=== PATIENT | female | born 1985 | race Caucasian/White ===

== ENCOUNTER → 2016-09-05 | Outpatient (CLI) | payer SELFPAY ==
--- NOTE | 2016-09-05 12:01 | MM ---
Reason for exam: clinical finding. Baseline mammogram. Indicated problem(s): lump or thickening in the right breast. Physical Findings: Nurse Summary: 0.5cm nodule in the right breast at 4 o'clock (nurse mm). MG Diagnostic Mammo w CAD ARIANNE Bilateral CC, MLO, and XCCL view(s) were taken. There are scattered fibroglandular densities. Finding: There are few typically benign round calcifications in the right breast. There is no discrete abnormality. These results were verbally communicated with the patient and result sheet given to the patient on 09/05/16. ASSESSMENT: Incomplete: need additional imaging evaluation, BI-RAD 0 RECOMMENDATION: Ultrasound of the right breast. (palpable abnormality)
--- NOTE | 2016-09-05 12:03 | USB ---
Reason for exam: additional evaluation requested from abnormal screening. US Breast Limited RT Right breast ultrasound demonstrates no cystic or solid lesion seen. These results were verbally communicated with the patient and result sheet given to the patient on 09/05/16. ASSESSMENT: Negative, BI-RAD 1 RECOMMENDATION: Routine screening mammogram of both breasts at age 40. Manage patient on a clinical basis.
== END | disposition home or self-care (01) ==
LOC: RADMAMWWP 09:56
PROVIDERS: ATTEND Internal Medicine
DX: N63 Unspecified lump in breast (principal); R92.8 Other abnormal and inconclusive findings on diagnostic imaging of breast
CPT/HCPCS: 81025; 76642; G0204

== ENCOUNTER 2017-06-29 13:55 | Emergency (ER) | payer SELFPAY ==
[2017-06-29 14:04] VITALS: BP 163/91; PULSE 86; RESP 16; TEMP 98.7
--- NOTE | 2017-06-29 15:01 | XR ---
EXAMINATION TYPE: XR chest 2V DATE OF EXAM: 06/29/2017 COMPARISON: NONE HISTORY: Chest pain TECHNIQUE: Frontal and lateral views of the chest are obtained. FINDINGS: There is no focal air space opacity. No evidence for pneumothorax. No pleural effusion. The cardiac silhouette size is within normal limits. The osseous structures are grossly intact. IMPRESSION: 1. No acute cardiopulmonary process.
--- NOTE | 2017-06-29 15:41 | ED ---
General Adult HPI - General Chief complaint: Upper Respiratory Infection Stated complaint: COUGHING Time Seen by Provider: 06/29/17 14:44 Source: patient, RN notes reviewed Mode of arrival: ambulatory Limitations: no limitations - History of Present Illness Initial comments: 32-year-old female presents emergency Department chief complaint of cough and congestion. She states she's had this for the last few days. She states she feels very congested in the chest. She states she is not coughing anything up. She does admit to a runny nose. No high fevers. Her brother has bronchitis. There is been no nausea or vomiting. She does smoke on occasion. She was concerned because she just does not seem to be getting better so she thought that she should be seen. no nausea, vomiting, abdominal pain, SOB, chest pain. - Related Data Home Medications Medication Instructions Recorded Confirmed Ibuprofen [Advil] 200 - 400 mg PO Q6H PRN 06/29/17 06/29/17 guaiFENesin-DM 600/30MG [Mucinex 1 tab PO BID PRN 06/29/17 06/29/17 Dm] Previous Rx's Medication Instructions Recorded predniSONE 50 mg PO DAILY #5 tab 06/29/17 Allergies Allergy/AdvReac Type Severity Reaction Status Date / Time No Known Allergies Allergy Verified 06/29/17 14:56 Review of Systems ROS Statement: Those systems with pertinent positive or pertinent negative responses have been documented in the HPI. ROS Other: All systems not noted in ROS Statement are negative. Past Medical History Past Medical History: No Reported History History of Any Multi-Drug Resistant Organisms: None Reported Past Surgical History: Adenoidectomy, Tonsillectomy Past Anesthesia/Blood Transfusion Reactions: No Reported Reaction Past Psychological History: No Psychological Hx Reported Smoking Status: Current some day smoker Past Alcohol Use History: None Reported Past Drug Use History: None Reported General Exam - General Exam Comments Initial Comments: General exam: Alert, active, comfortable in no apparent distress Head: Normocephalic Eyes: Normal reaction of pupils, equal size, normal range of extraocular motion Ears: normal external ear canals, pink tympanic membranes with normal cone of light Nose: clear with pink turbinates Throat: no erythema or exudates with normal sized tonsils Neck: no masses, no nuchal rigidity Chest: no chest wall deformity Lungs: equal air entry with no crackles or wheeze CVS: S1 and S2 normal with no audible mumurs, regular rhythm Abdomen: no hepatosplenomegaly, normal bowel sounds, no guarding or rigidity Spine: no scoliosis or deformity Skin: no rashes Neurological: No focal deficits, tone is normal in all 4 extremities Limitations: no limitations Course Vital Signs 06/29/17 14:01 Temperature 98.7 F Pulse Rate 86 Respiratory 16 Rate Blood Pressure 163/91 O2 Sat by Pulse 98 Oximetry Medical Decision Making - Medical Decision Making 32 yo female presents for upper respiratory infection symptoms. CHest xray and swabs are negative. we discussed most likely viral cause. We discussed return parameters and follow up. Patient in agreement with plan and all questions have been answered. Patient will be discharged at this time. return parameters were discussed. - Lab Data Lab Results 06/29/17 Range/Units 14:21 Influenza Type A RNA Not Detected (Not Detectd) Influenza Type B (PCR) Not Detected (Not Detectd) Disposition Clinical Impression: Upper respiratory infection Disposition: HOME SELF-CARE Condition: Stable Instructions: Upper Respiratory Infection (ED) Additional Instructions: please use medications as prescribed. follow up in 2-3days. Please return for worsening or changing symptoms. Prescriptions: predniSONE 50 mg PO DAILY #5 tab Referrals: Katlyn Chaidez MD [Primary Care Provider] - 1-2 days Time of Disposition: 15:41
== END 2017-06-29 15:55 | disposition home or self-care (01) ==
LOC: EC 13:55
DX: J06.9 Acute upper respiratory infection, unspecified (principal); F17.200 Nicotine dependence, unspecified, uncomplicated
CPT/HCPCS: 71046; 87502; 99283

== ENCOUNTER 2017-10-01 13:04 | Emergency (ER) | payer OTHER ==
[2017-10-01 13:35] VITALS: BP 143/95; PULSE 84; RESP 18; TEMP 98.6
--- NOTE | 2017-10-01 14:01 | ED ---
General Adult HPI - General Chief complaint: Skin/Abscess/Foreign Body Stated complaint: arm swelling/pain Time Seen by Provider: 10/01/17 13:43 Source: patient, RN notes reviewed Mode of arrival: ambulatory Limitations: no limitations - History of Present Illness Initial comments: Patient 32-year-old female presenting to the emergency room today with a chief complaint of some swelling some pain to the left upper arm. Patient does admit that began to bother light last night. She states she does feel that there is some swelling to the medial aspect distal humerus. Patient states worse with certain movements. She is unsure if she injured the area. Patient denies any other complaints or symptoms. Patient denies any recent fever, chills, shortness of breath, chest pain, back pain, abdominal pain, nausea or vomiting, numbness or tingling, headaches or visual changes, or any other complaints. - Related Data Home Medications Medication Instructions Recorded Confirmed Ibuprofen [Advil] 200 - 400 mg PO Q6H PRN 06/29/17 06/29/17 guaiFENesin-DM 600/30MG [Mucinex 1 tab PO BID PRN 06/29/17 06/29/17 Dm] Previous Rx's Medication Instructions Recorded predniSONE 50 mg PO DAILY #5 tab 06/29/17 Allergies Allergy/AdvReac Type Severity Reaction Status Date / Time No Known Allergies Allergy Verified 10/01/17 13:34 Review of Systems ROS Statement: Those systems with pertinent positive or pertinent negative responses have been documented in the HPI. ROS Other: All systems not noted in ROS Statement are negative. Past Medical History Past Medical History: Hypertension History of Any Multi-Drug Resistant Organisms: None Reported Past Surgical History: Adenoidectomy, Tonsillectomy Additional Past Surgical History / Comment(s): d & c x2 Past Anesthesia/Blood Transfusion Reactions: No Reported Reaction Past Psychological History: No Psychological Hx Reported Smoking Status: Current every day smoker Past Alcohol Use History: None Reported Past Drug Use History: None Reported General Exam - General Exam Comments Initial Comments: General: The patient is awake and alert, in no distress, and does not appear acutely ill. Neck: The neck is supple, there is no tenderness or JVD. Cardiovascular: There is a regular rate and rhythm. No murmur, rub or gallop is appreciated. Respiratory: Lungs are clear to auscultation, respirations are non-labored, breath sounds are equal. No wheezes, stridor, rales, or rhonchi. Musculoskeletal/skin: Patient has normal appearance for left upper extremity. There is no obvious swelling, redness, deformity. Patient does have some tenderness to the medial aspect of the distal humerus. Full range of motion. Sensation intact. Pulses equal bilateral 2+. Strength 5/5. Neurological: A&O x 3. CN II-XII intact, There are no obvious motor or sensory deficits. Coordination appears grossly intact. Speech is normal. Limitations: no limitations Course Vital Signs 10/01/17 13:32 Temperature 98.6 F Pulse Rate 84 Respiratory 18 Rate Blood Pressure 143/95 O2 Sat by Pulse 97 Oximetry Medical Decision Making - Medical Decision Making Patient's ultrasound negative for any evidence of DVT. Results were discussed with the patient. Patient advised to continue with anti-inflammatories. Advised watch for signs infection. Advised return if any symptoms increase or worsen. Disposition Clinical Impression: Arm pain Disposition: HOME SELF-CARE Condition: Good Instructions: Muscle Strain (ED) Additional Instructions: Please continue anti-inflammatories for pain. Please watch for signs of infection which may include increased pain times one, redness, fever or chills. Please return to emergency room if any symptoms increase or worsen or fail concerns for Referrals: Katlyn Chaidez MD [Primary Care Provider] - 1-2 days Time of Disposition: 15:05
--- NOTE | 2017-10-01 15:00 | US ---
EXAMINATION TYPE: US venous doppler duplex UE LT DATE OF EXAM: 10/01/2017 COMPARISON: NONE CLINICAL HISTORY: Pain. Pt states tingling left medial arm and fingers SIDE PERFORMED: Left Morbidly obese pt, difficult exam Grayscale, color doppler, spectral doppler imaging performed of the deep veins of the upper extremity . There is normal flow, compressibility and vascular waveforms. IMPRESSION: Left Arm: Negative for DVT
== END 2017-10-01 15:15 | disposition home or self-care (01) ==
LOC: EC 13:04
DX: M79.622 Pain in left upper arm (principal); M79.89 Other specified soft tissue disorders; F17.200 Nicotine dependence, unspecified, uncomplicated
CPT/HCPCS: 99283

== ENCOUNTER → 2020-01-26 | Outpatient (CLI) | payer BC ==
[2020-01-26 13:40] LABS: HCT 40.2 % (34.0-46.0); HGB 12.6 gm/dL (11.4-16.0); MCH 25.9 pg (25.0-35.0); MCHC 31.3 g/dL (31.0-37.0); MCV 82.8 fL (80.0-100.0); Mean Platelet Volume 6.8; Platelet Count 241 k/uL (150-450); RBC 4.85 m/uL (3.80-5.40); RDW 14.4 % (11.5-15.5); WBC 8.5 k/uL (3.8-10.6)
[2020-01-26 20:34] LABS: Progesterone 0.3 ng/mL
[2020-01-27 00:25] LABS: Prolactin 17.7 ng/mL (2.8-29.2)
[2020-01-27 00:26] LABS: Estradiol 271.4 pg/mL; Follicle Stimulating Hormone 1.3 mIU/mL
[2020-01-27 00:29] LABS: HCG,Quantitative Serum <2.0 mIU/mL
== END | disposition home or self-care (01) ==
LOC: LABWHC1 12:37
PROVIDERS: ATTEND Obstetrics & Gynecology
DX: Z13.29 Encounter for screening for other suspected endocrine disorder (principal); N93.8 Other specified abnormal uterine and vaginal bleeding
CPT/HCPCS: 36415; 82627; 82670; 83001; 83002; 84144; 84146; 84403; 84439; 84443; 84479; 84702; 85027

== ENCOUNTER → 2020-02-10 | Outpatient (CLI) | payer BC ==
--- NOTE | 2020-02-11 06:38 | US ---
EXAMINATION TYPE: US pelvis complete transvag DATE OF EXAM: 02/10/2020 COMPARISON: Prior ultrasound September 15, 2014 CLINICAL HISTORY: N93.8 Other specified abnormal uterine and vaginal. heavy bleeding and clots, patie nt has had this happened before, PCOS, TECHNIQUE: TA and TV. Transabdominal sonographic images of the pelvis were acquired. Transvaginal sonographic images were medically necessary to better assess the following anatomy: uterus Date of LMP: 01/29/2020, lasted 2 weeks EXAM MEASUREMENTS: Uterus: 13.4 x 7.8 x 6.7 cm Endometrial Stripe: 1.9 cm Right Ovary: 3.8 x 2.9 x 3.6 cm Left Ovary: 3.3 x 2.9 x 2.6 cm *large habitus* 1. Uterus: Anteverted enlarged with appearance of fundal fibroid = 4.1 x 3.1 x 3.1cm 2. Endometrium: thickened 3. Right Ovary: wnl 4. Left Ovary: wnl 5. Bilateral Adnexa: wnl 6. Posterior cul-de-sac: wnl Prominent heterogeneous uterus redemonstrated. In the fundus there is poorly defined hyperechoic 3.5 cm lesion felt to reflect intramural fibroid not clearly seen on prior study. This is more hypoechoic on transvaginal investigation. Endometrial stripe is poorly defined but also suspected abnormally th ickened with measurements up to 22 mm on transvaginal investigation and 15 mm on transabdominal inves tigation. No free fluid in pelvic cul-de-sac. Few small nabothian cysts in the cervix. Both ovaries are identified and normal in size on transabdominal investigation, not identified and tr ansvaginal investigation. No suspicious adnexal masses noted. IMPRESSION: Heterogeneous prominent uterus with focal 4.1 cm fundal intramural fibroid. Poor visuali zation of endometrial stripe but it is felt abnormally thickened especially given patient's last know n menstrual period January 28 for proliferative phase of menstrual cycle. Consider further investigatio n with dilatation and curettage given patient's symptoms.
== END | disposition home or self-care (01) ==
LOC: RADUSWWP 14:38
PROVIDERS: ATTEND Obstetrics & Gynecology
DX: D25.1 Intramural leiomyoma of uterus (principal)
CPT/HCPCS: 76830; 76856

== ENCOUNTER → 2020-03-29 | Outpatient (CLI) | payer BC ==
[2020-03-29 10:36] LABS: Basophils % (A) 0 %; Eosinophils % (A) 0 %; HCT 38.6 % (34.0-46.0); HGB 12.3 gm/dL (11.4-16.0); Hypochromasia Slight; Lymphocytes # (A) 1.8 k/uL (1.0-4.8); Lymphocytes % (A) 27 %; MCH 25.7 pg (25.0-35.0); MCHC 31.9 g/dL (31.0-37.0); MCV 80.4 fL (80.0-100.0); Mean Platelet Volume 7.3; Monocytes # (A) 0.3 k/uL (0-1.0); Monocytes % (A) 5 %; Neutrophils # (A) 4.6 k/uL (1.3-7.7); Neutrophils % (A) 67 %; Platelet Count 238 k/uL (150-450); RDW 14.4 % (11.5-15.5); WBC 6.9 k/uL (3.8-10.6)
== END | disposition home or self-care (01) ==
LOC: LABPAT 08:37
PROVIDERS: ATTEND Obstetrics & Gynecology
DX: Z01.818 Encounter for other preprocedural examination (principal)
CPT/HCPCS: 36415; 85025

== ENCOUNTER → 2020-04-01 | Outpatient (CLI) | payer BC ==
--- NOTE | 2020-04-01 11:00 | ECHOF ---
Referral Reason:R00.2 palpitations MEASUREMENTS -------- HEIGHT: 165.1 cm WEIGHT: 149.7 kg BP: RVIDd: 3.6 cm (< 3.3) IVSd: 1.5 cm (0.6 - 1.1) LVIDd: 4.6 cm (3.9 - 5.3) LVPWd: 1.6 cm (0.6 - 1.1) IVSs: 2.0 cm LVIDs: 3.3 cm LVPWs: 1.7 cm LAESV Index (A-L): 28.13 ml/m Ao Diam: 3.5 cm (2.0 - 3.7) AV Cusp: 2.2 cm (1.5 - 2.6) MV EXCURSION: 11.333 mm (> 18.000) MV EF SLOPE: 73 mm/s (70 - 150) EPSS: 0.8 cm MV E Beltran: 0.96 m/s MV DecT: 205 ms MV A Beltran: 0.84 m/s MV E/A Ratio: 1.14 RAP: 5.00 mmHg RVSP: 37.55 mmHg FINDINGS -------- Sinus rhythm with extra systolic beats. This was a technically difficult study with suboptimal apical views. The left ventricular size is normal. There is moderate concentric left ventricular hypertrophy. O verall left ventricular systolic function is low-normal with, an EF between 50 - 55 %. The diastoli c filling pattern is normal for the age of the patient 11.50. The right ventricle is mildly enlarged. Normal LA size by volume 22+/-6 ml/m2. The right atrium was not well visualized. 5.0mg of Lumason was utilized for enhancement of images Interatrial and interventricular septum intact. There is no evidence of aortic regurgitation. There is no evidence of aortic stenosis. There is trace to mild mitral regurgitation. Mild tricuspid regurgitation present. There is borderline pulmonary artery hypertension. The righ t ventricular systolic pressure, as measured by Doppler, is 37.55mmHg. There is no pulmonic regurgitation present. The aortic root size is normal. IVC Not well visulized. There is no pericardial effusion. CONCLUSIONS -------- 1. The left ventricular size is normal. 2. There is moderate concentric left ventricular hypertrophy. 3. Overall left ventricular systolic function is low-normal with, an EF between 50 - 55 %. 4. The diastolic filling pattern is normal for the age of the patient 11.50 5. The right ventricle is mildly enlarged. 6. There is trace to mild mitral regurgitation. 7. Mild tricuspid regurgitation present. 8. There is borderline pulmonary artery hypertension. 9. The right ventricular systolic pressure, as measured by Doppler, is 37.55mmHg. MOBILE APPLICATION DEVELOPER: Unique Fountain RDCS
== END | disposition home or self-care (01) ==
LOC: RADECHMAIN 08:26
PROVIDERS: ATTEND Nurse Practitioner Family
DX: I08.1 Rheumatic disorders of both mitral and tricuspid valves (principal); I27.21 Secondary pulmonary arterial hypertension
CPT/HCPCS: 93306; Q9950

== ENCOUNTER 2020-04-05 06:02 | Day surgery (SDC) | payer BC ==
[2020-04-01 13:19] VITALS: BMI 54.6
--- NOTE | 2020-04-02 15:52 | P.HPOB ---
History of Present Illness H&P Date: 04/02/20 Chief Complaint: Dysfunctional uterine bleeding Patient is a 35-year-old female who has heavy vaginal bleeding. An ultrasound reveals the lining of her uterus to 1.9 cm with a 4 cm fibroid fibroid. She does have a history of hyperplasia and therefore she is scheduled for a D&C with hysteroscopy. Once tissue samples return we'll plan for more thorough long-term management treatment options. On physical exam vital signs are stable and afebrile. This is a morbidly obese female whose HEENT is otherwise unremarkable. Heart is otherwise regular, lungs are otherwise clear abdomen soft and nontender and pelvic exam is unremarkable but limited due to body habitus. Assessment soft uterine bleeding/menorrhagia with history of hyperplasia Plan D&C with hysteroscopy Past Medical History Past Medical History: Diabetes Mellitus, Hyperlipidemia, Hypertension Additional Past Medical History / Comment(s): PCOS. difficult periods History of Any Multi-Drug Resistant Organisms: None Reported Past Surgical History: Adenoidectomy, Tonsillectomy Additional Past Surgical History / Comment(s): d & c x2 Past Anesthesia/Blood Transfusion Reactions: No Reported Reaction Smoking Status: Former smoker - Past Family History Mother Family Medical History: No Reported History Medications and Allergies Home Medications Medication Instructions Recorded Confirmed Type Atorvastatin [Lipitor] 10 mg PO HS 04/01/20 04/01/20 History Ergocalciferol [Vitamin D2] 50,000 unit PO FR 04/01/20 04/01/20 History Triamterene/Hydrochlorothiazid 2 tab PO DAILY 04/01/20 04/01/20 History [Triamterene-Hctz 37.5-25 mg Tb] Venlafaxine HCl [Effexor] 75 mg PO DAILY 04/01/20 04/01/20 History amLODIPine [Norvasc] 10 mg PO DAILY 04/01/20 04/01/20 History metFORMIN HCL 1,000 mg PO BID 04/01/20 04/01/20 History Allergies Allergy/AdvReac Type Severity Reaction Status Date / Time No Known Allergies Allergy Verified 04/01/20 13:09 Exam Osteopathic Statement: *. No significant issues noted on an osteopathic structural exam other than those noted in the History and Physical/Consult.
[~2020-04-05 06:02] MED LIST: DEXAMETHASONE SOD PHOSPHATE 10 MG/ML 1 ML VIAL IV ONE; HYDROmorphone 0.5 MG/0.5 ML SYRINGE IVP PRN; LACTATED RINGERS 1,000 ML IV SCH; ONDANSETRON 4 MG/2 ML VIAL IVP ONE; Pre Op ABX Message 1 EACH MISC MISCELLANE ONE; SCOPOLAMINE 1.5MG/72HR PATCH TRANSDERM ONE
[2020-04-05] MEDS ORDERED: LIDOCAINE 1% (10MG/ML) FOR IV START INTRADERMA ONE (06:50)
[2020-04-05 07:01] LABS: Glucose,Whole Blood 151 mg/dL (75-99)
[2020-04-05] MEDS ORDERED: SUCCINYLCHOLINE CHLORIDE VIAL 200 MG/10 ML VIAL IV ONE (07:31)
[2020-04-05] MEDS ORDERED: PROPOFOL 10 MG/ML 20 ML VIAL IV ONE (07:31)
[2020-04-05] MEDS ORDERED: fentaNYL (PF) 50 MCG/ML 2 ML AMP ONE (07:31)
[2020-04-05] MEDS ORDERED: KETOROLAC 15 MG/ML 1 ML VIAL ONE (07:31)
[2020-04-05] MEDS ORDERED: MIDAZOLAM 2 MG/2 ML VIAL ONE (07:31)
[2020-04-05] MEDS ORDERED: LIDOCAINE 1% INJ 10MG/ML (20 ML MDV) ONE (07:31)
--- NOTE | 2020-04-05 08:07 | P.OP ---
Date of Procedure: 04/05/20 Preoperative Diagnosis: Dysfunctional uterine bleeding Postoperative Diagnosis: Same Procedure(s) Performed: D&C with hysteroscopy Anesthesia: RADHA Surgeon: Bigg Geronimo Estimated Blood Loss (ml): 5 Pathology: other (Uterine curettings) Condition: stable Disposition: same day Operative Findings: Proliferative endometrium Description of Procedure: Patient was taken to the operating suite where general anesthetic was found be adequate. She was prepped and draped in normal sterile fashion and placed in dorsal lithotomy position. Initially a weighted speculum was inserted in vagina and anterior lip of the cervix identified and grasped with single-tooth tenaculum. Was then sounded to approximately 10 at 11 cm and dilated. Camera was then inserted proliferative endometrium. She was having some menses at this point some minimal visualization was actually able to be obtained. Once this was concluded. Camera was removed and sharp curettings of the endometrium were obtained. All tissues collected and placed on Telfa. It was then sent to [facility] for evaluation. All incidents were then removed. Sponge, lap, needle counts were all correct 2. Patient was then taken to the recovery room in stable and satisfactory condition. Plan - Discharge Summary Discharge Rx Participant: No New Discharge Prescriptions: New Ibuprofen [Motrin] 600 mg PO Q6HR PRN #30 tab PRN Reason: Pain No Action metFORMIN HCL 1,000 mg PO BID Venlafaxine HCl [Effexor] 75 mg PO DAILY Ergocalciferol [Vitamin D2] 50,000 unit PO FR Atorvastatin [Lipitor] 10 mg PO HS amLODIPine [Norvasc] 10 mg PO DAILY Triamterene/Hydrochlorothiazid [Triamterene-Hctz 37.5-25 mg Tb] 2 tab PO DAILY Discharge Medication List Atorvastatin [Lipitor] 10 mg PO HS 04/01/20 [History] Ergocalciferol [Vitamin D2] 50,000 unit PO FR 04/01/20 [History] Triamterene/Hydrochlorothiazid [Triamterene-Hctz 37.5-25 mg Tb] 2 tab PO DAILY 04/01/20 [History] Venlafaxine HCl [Effexor] 75 mg PO DAILY 04/01/20 [History] amLODIPine [Norvasc] 10 mg PO DAILY 04/01/20 [History] metFORMIN HCL 1,000 mg PO BID 04/01/20 [History] Ibuprofen [Motrin] 600 mg PO Q6HR PRN #30 tab 04/05/20 [Rx] Follow up Appointment(s)/Referral(s): Bigg Geronimo DO [Doctor of Osteopathic Medicine] - 1 Week Activity/Diet/Wound Care/Special Instructions: No heavy lifting, limit stairs and driving, and pelvic rest today. If any high temperatures, heavy bleeding, or severe pain call my office Discharge Disposition: HOME SELF-CARE
[2020-04-05 08:13] VITALS: TEMP 97.9
[2020-04-05 08:19] LABS: Glucose,Whole Blood 156 mg/dL (75-99)
[2020-04-05 08:48] VITALS: RESP 16
[2020-04-05 08:55] VITALS: BP 143/78; PULSE 77
== END 2020-04-05 09:27 | disposition home or self-care (01) ==
LOC: OR 06:02
PROVIDERS: ATTEND Obstetrics & Gynecology
DX: N85.00 Endometrial hyperplasia, unspecified (principal); I10 Essential (primary) hypertension; E78.5 Hyperlipidemia, unspecified; E11.9 Type 2 diabetes mellitus without complications; E28.2 Polycystic ovarian syndrome; E66.01 Morbid (severe) obesity due to excess calories; Z88.8 Allergy status to other drugs, medicaments and biological substances; Z79.899 Other long term (current) drug therapy; Z79.84 Long term (current) use of oral hypoglycemic drugs; Z98.890 Other specified postprocedural states; Z87.891 Personal history of nicotine dependence; Z68.43 Body mass index [BMI] 50.0-59.9, adult
CPT/HCPCS: 58558; 81025; 88305; J2250; J0330; J1100; J2405; J2001; J3010; J1885; J2704

== ENCOUNTER 2020-05-23 21:14 | Emergency (ER) | payer BC ==
[2020-05-23 21:33] VITALS: BP 115/82; PULSE 97; RESP 16; TEMP 98.4
[2020-05-23 22:59] LABS: Basophils % (A) 0 %; Eosinophils % (A) 0 %; HCT 30.8 % (34.0-46.0); Hypochromasia Slight; Lymphocytes # (A) 2.2 k/uL (1.0-4.8); Lymphocytes % (A) 29 %; MCH 24.7 pg (25.0-35.0); MCHC 31.5 g/dL (31.0-37.0); MCV 78.7 fL (80.0-100.0); Mean Platelet Volume 7.3; Monocytes # (A) 0.3 k/uL (0-1.0); Monocytes % (A) 4 %; Neutrophils # (A) 5.2 k/uL (1.3-7.7); Neutrophils % (A) 66 %; Platelet Count 281 k/uL (150-450); RBC 3.91 m/uL (3.80-5.40); RDW 15.1 % (11.5-15.5); WBC 7.8 k/uL (3.8-10.6)
[2020-05-23 23:10] LABS: Appearance,Urine Clear (Clear); Bilirubin,Urine Negative (Negative); Blood,Urine Large (Negative); Color,Urine Light Orange; Glucose,Urine (UA) Negative (Negative); Ketones,Urine Negative (Negative); Leukocyte Esterase,Urine Trace (Negative); Mucus,Urine Rare /hpf; Nitrite,Urine Negative (Negative); PH, Urine 7.5 (5.0-8.0); Protein,Urine 1+ (Negative); RBC,Urine >182 /hpf (0-5); Specific Gravity,Urine 1.017 (1.001-1.035); Squamous Epithelial Cell,Urine 3 /hpf (0-4); Urobilinogen,Urine <2.0 mg/dL (<2.0); WBC,Urine 5 /hpf (0-5)
[2020-05-23 23:13] LABS: HGB 9.7 gm/dL (11.4-16.0)
[2020-05-23 23:14] LABS: INR 0.9 (<1.2); Prothrombin Time 9.7 sec (9.0-12.0)
[2020-05-23 23:15] LABS: Partial Thromboplastin Time 22.9 sec (22.0-30.0)
[2020-05-23 23:18] LABS: ALT 20 U/L (4-34); AST 20 U/L (14-36); African American GFR (CKD) >90 (>60 ml/min/1.73 sqM); Albumin 3.8 g/dL (3.5-5.0); Alkaline Phosphatase 69 U/L (38-126); Anion Gap 6 mmol/L; Blood Urea Nitrogen 10 mg/dL (7-17); Calcium 9.3 mg/dL (8.4-10.2); Carbon Dioxide 30 mmol/L (22-30); Chloride 103 mmol/L (98-107); Glucose 169 mg/dL (74-99); Non-African American GFR(CKD) >90 (>60 ml/min/1.73 sqM); Potassium 3.8 mmol/L (3.5-5.1); Sodium 139 mmol/L (137-145); Total Bilirubin 0.3 mg/dL (0.2-1.3); Total Protein 6.5 g/dL (6.3-8.2)
--- NOTE | 2020-05-23 23:39 | ED ---
General Adult HPI - General Chief complaint: Vaginal Bleeding Stated complaint: Vaginal Bleeding Time Seen by Provider: 05/23/20 21:40 Source: patient, RN notes reviewed, old records reviewed Mode of arrival: ambulatory Limitations: no limitations - History of Present Illness Initial comments: 35-year-old female patient to ED for vaginal bleeding. Patient was that she had a D&C in March due to heavy menses reports that she has been having some bleeding since then. He reports that she did call her CLASSROOM COORDINATOR who recommended that if she ever felt dizzy when she stood up to come to the ER. Patient reports that earlier today she stood up from sitting she felt a little bit lightheaded. She denies any current pain. Denies any other complaints. Systemic: Pt denies fatigue, fever/chills, rash. Pt denies weakness, night sweats, weight loss. Neuro: Pt denies headache, visual disturbances, syncope or pre-syncope. HEENT: Pt denies ocular discharge or irritation, otalgia, rhinorrhea, pharyngitis or notable lymphadenopathy. Cardiopulmonary: Pt denies chest pain, SOB, heart palpitations, dyspnea on exertion. Abdominal/GI: Pt denies abdominal pain, n/v/d. : Pt denies dysuria, burning w/ urination, frequency/urgency. Denies new onset urinary or bowel incontinence. MSK: Pt denies myalgia, loss of strength or function in extremities. Neuro: Pt denies new onset weakness, paresthesias. - Related Data Home Medications Medication Instructions Recorded Confirmed Atorvastatin [Lipitor] 10 mg PO HS 04/01/20 04/01/20 Ergocalciferol [Vitamin D2] 50,000 unit PO FR 04/01/20 04/01/20 Triamterene/Hydrochlorothiazid 2 tab PO DAILY 04/01/20 04/01/20 [Triamterene-Hctz 37.5-25 mg Tb] Venlafaxine HCl [Effexor] 75 mg PO DAILY 04/01/20 04/01/20 amLODIPine [Norvasc] 10 mg PO DAILY 04/01/20 04/01/20 metFORMIN HCL 1,000 mg PO BID 04/01/20 04/01/20 Previous Rx's Medication Instructions Recorded Ibuprofen [Motrin] 600 mg PO Q6HR PRN #30 tab 04/05/20 Allergies Allergy/AdvReac Type Severity Reaction Status Date / Time lisinopril AdvReac Swelling Verified 05/23/20 21:33 Review of Systems ROS Statement: Those systems with pertinent positive or pertinent negative responses have been documented in the HPI. ROS Other: All systems not noted in ROS Statement are negative. Past Medical History Past Medical History: Hypertension History of Any Multi-Drug Resistant Organisms: None Reported Past Surgical History: Adenoidectomy, Tonsillectomy Additional Past Surgical History / Comment(s): d & c x2 Past Anesthesia/Blood Transfusion Reactions: No Reported Reaction Past Psychological History: No Psychological Hx Reported Smoking Status: Former smoker Past Alcohol Use History: None Reported Past Drug Use History: None Reported General Exam - General Exam Comments Initial Comments: Constitutional: NAD, AOX3, Pt has pleasant affect. HEENT: NC/AT, trachea midline, neck supple, no lymphadenopathy.External ears appear normal, without discharge. Mucous membranes moist. Eyes PERRLA, EOM intact. There is no scleral icterus. No pallor noted. Cardiopulmonary: RRR, no murmurs, rubs or gallops, no JVD noted. Lungs CTAB in anterior and posterior ponce. No peripheral edema. Abdominal exam: Abdomen soft and non-distended. Abdomen non-tender to palpation in all 4 quadrants. Bowel sounds active in LLQ. No hepatosplenomegaly. No ecchy mosis Neuro: CN II-XII grossly intact. No nuchal rigidity. No raccon eyes, no sands sign, no hemotympanum. No cervical spinal tenderness. : Exam revealed no ulcerations, no active bleeding. Cervix closed. Chaperogned by ALEXANDER [place]. Limitations: no limitations Course Vital Signs 05/23/20 21:29 Temperature 98.4 F Pulse Rate 97 Respiratory 16 Rate Blood Pressure 115/82 O2 Sat by Pulse 100 Oximetry Medical Decision Making - Medical Decision Making 35-year-old female patient to ED for vaginal bleeding. Patient was that she had a D&C in March due to heavy menses reports that she has been having some bleeding since then. He reports that she did call her CLASSROOM COORDINATOR who recommended that if she ever felt dizzy when she stood up to come to the ER. Patient reports that earlier today she stood up from sitting she felt a little bit lightheaded. She denies any current pain. Denies any other complaints. Pt VSS, afebrile. Physical exam displayed: Exam revealed no ulcerations, no active bleeding. Cervix closed. Chaperogned by ALEXANDER [place]. Laboratory investigations: revealed Hb of 9.7. UA displayed blood. Hemoglobin was 12.3 on 03/29/2020. Patient is denying any current complaints. Denies any feeling of dizziness or weakness. Patient discharged with outpatient CLASSROOM COORDINATOR follow-up and return precautions. Case discussed with Dr. Wayne. - Lab Data Result diagrams: 05/23/20 22:34 05/23/20 22:34 Lab Results 05/23/20 05/23/20 05/23/20 Range/Units 22:34 22:34 22:34 WBC 7.8 (3.8-10.6) k/uL RBC 3.91 (3.80-5.40) m/uL Hgb 9.7 L D (11.4-16.0) gm/dL Hct 30.8 L (34.0-46.0) % MCV 78.7 L (80.0-100.0) fL MCH 24.7 L (25.0-35.0) pg MCHC 31.5 (31.0-37.0) g/dL RDW 15.1 (11.5-15.5) % Plt Count 281 (150-450) k/uL MPV 7.3 Neutrophils % 66 % Lymphocytes % 29 % Monocytes % 4 % Eosinophils % 0 % Basophils % 0 % Neutrophils # 5.2 (1.3-7.7) k/uL Lymphocytes # 2.2 (1.0-4.8) k/uL Monocytes # 0.3 (0-1.0) k/uL Eosinophils # 0.0 (0-0.7) k/uL Basophils # 0.0 (0-0.2) k/uL Hypochromasia Slight PT (9.0-12.0) sec INR (<1.2) APTT (22.0-30.0) sec Sodium 139 (137-145) mmol/L Potassium 3.8 (3.5-5.1) mmol/L Chloride 103 (98-107) mmol/L Carbon Dioxide 30 (22-30) mmol/L Anion Gap 6 mmol/L BUN 10 (7-17) mg/dL Creatinine 0.58 (0.52-1.04) mg/dL Est GFR (CKD-EPI)AfAm >90 (>60 ml/min/1.73 sqM) Est GFR (CKD-EPI)NonAf >90 (>60 ml/min/1.73 sqM) Glucose 169 H (74-99) mg/dL Calcium 9.3 (8.4-10.2) mg/dL Total Bilirubin 0.3 (0.2-1.3) mg/dL AST 20 (14-36) U/L ALT 20 (4-34) U/L Alkaline Phosphatase 69 (38-126) U/L Total Protein 6.5 (6.3-8.2) g/dL Albumin 3.8 (3.5-5.0) g/dL Urine Color Urine Appearance (Clear) Urine pH (5.0-8.0) Ur Specific [place] (1.001-1.035) Urine Protein (Negative) Urine Glucose (UA) (Negative) Urine Ketones (Negative) Urine Blood (Negative) Urine Nitrite (Negative) Urine Bilirubin (Negative) Urine Urobilinogen (<2.0) mg/dL Ur Leukocyte Esterase (Negative) Urine RBC (0-5) /hpf Urine WBC (0-5) /hpf Ur Squamous Epith Cells (0-4) /hpf Urine Mucus (None) /hpf Urine HCG, Qual Not Detected (Not Detectd) Blood Type Blood Type Recheck Bld Type Recheck Status Antibody Screen Spec Expiration Date 05/23/20 05/23/20 05/23/20 Range/Units 22:34 22:34 22:34 WBC (3.8-10.6) k/uL RBC (3.80-5.40) m/uL Hgb (11.4-16.0) gm/dL Hct (34.0-46.0) % MCV (80.0-100.0) fL MCH (25.0-35.0) pg MCHC (31.0-37.0) g/dL RDW (11.5-15.5) % Plt Count (150-450) k/uL MPV Neutrophils % % Lymphocytes % % Monocytes % % Eosinophils % % Basophils % % Neutrophils # (1.3-7.7) k/uL Lymphocytes # (1.0-4.8) k/uL Monocytes # (0-1.0) k/uL Eosinophils # (0-0.7) k/uL Basophils # (0-0.2) k/uL Hypochromasia PT 9.7 (9.0-12.0) sec INR 0.9 (<1.2) APTT 22.9 (22.0-30.0) sec Sodium (137-145) mmol/L Potassium (3.5-5.1) mmol/L Chloride (98-107) mmol/L Carbon Dioxide (22-30) mmol/L Anion Gap mmol/L BUN (7-17) mg/dL Creatinine (0.52-1.04) mg/dL Est GFR (CKD-EPI)AfAm (>60 ml/min/1.73 sqM) Est GFR (CKD-EPI)NonAf (>60 ml/min/1.73 sqM) Glucose (74-99) mg/dL Calcium (8.4-10.2) mg/dL Total Bilirubin (0.2-1.3) mg/dL AST (14-36) U/L ALT (4-34) U/L Alkaline Phosphatase (38-126) U/L Total Protein (6.3-8.2) g/dL Albumin (3.5-5.0) g/dL Urine Color Light [place] Urine Appearance Clear (Clear) Urine pH 7.5 (5.0-8.0) Ur Specific [place] 1.017 (1.001-1.035) Urine Protein 1+ H (Negative) Urine Glucose (UA) Negative (Negative) Urine Ketones Negative (Negative) Urine Blood Large H (Negative) Urine Nitrite Negative (Negative) Urine Bilirubin Negative (Negative) Urine Urobilinogen <2.0 (<2.0) mg/dL Ur Leukocyte Esterase Trace H (Negative) Urine RBC >182 H (0-5) /hpf Urine WBC 5 (0-5) /hpf Ur Squamous Epith Cells 3 (0-4) /hpf Urine Mucus Rare H (None) /hpf Urine HCG, Qual (Not Detectd) Blood Type O Negative Blood Type Recheck O Neg Bld Type Recheck Status No Antibody Screen NEGATIVE Spec Expiration Date 05/26/2020 - 2333 Disposition Clinical Impression: Vaginal bleeding Disposition: HOME SELF-CARE Condition: Stable Instructions (If sedation given, give patient instructions): Dysmenorrhea (ED) Additional Instructions: Follow up with CLASSROOM COORDINATOR and PCP tomorrow. Have blood counts rechecked. Return to ED with any worsening symptoms. Is patient prescribed a controlled substance at d/c from ED?: No Referrals: Linda Emery MD [Primary Care Provider] - 1-2 days
--- NOTE | 2020-05-23 23:59 | US ---
EXAMINATION TYPE: US pelvis complete transvag DATE OF EXAM: 05/23/2020 COMPARISON: US's 02/10/2020 CLINICAL HISTORY: vaginal bleeding. TECHNIQUE: Transvaginal (TV) and Transabdominal (TA) . Transvaginal sonographic images of the pelvi s were acquired. Transabdominal sonographic images were medically necessary to better assess the fol lowing anatomy: ovaries. Date of LMP: unknown, patient has heavy, clotty periods that last for weeks, she is on one now. EXAM MEASUREMENTS: Uterus: 15.2 x 7.2 x 8.5 cm Endometrial Stripe: 1.7 cm Right Ovary: 3.9 x 2.9 x 2.9 cm Left Ovary: 3.9 x 2.9 x 3.2 cm 1. Uterus: Anteverted enlarged, heterogeneous, and bulky 2. Endometrium: thickened 3. Right Ovary: wnl, only seen transabdominally due to enlarged uterus 4. Left Ovary: wnl, only seen transabdominally due to enlarged uterus Spectral, color and waveform doppler imaging shows good arterial and venous flow within the ovaries ; there is no evidence for ovarian torsion. 5. Bilateral Adnexa: wnl 6. Posterior cul-de-sac: no free fluid IMPRESSION: Moderately enlarged uterus. No adnexal mass. No free fluid in the cul-de-sac. No evidence of ovarian torsion. No evidence of endometrial mass. Uterus slightly increased compared to old exam.
== END 2020-05-24 01:06 | disposition home or self-care (01) ==
LOC: EC 21:14
DX: N93.9 Abnormal uterine and vaginal bleeding, unspecified (principal); R42 Dizziness and giddiness; I10 Essential (primary) hypertension; Z79.899 Other long term (current) drug therapy; Z87.891 Personal history of nicotine dependence; Z88.8 Allergy status to other drugs, medicaments and biological substances
CPT/HCPCS: 36415; 76830; 76856; 80053; 81001; 81025; 85025; 85610; 85730; 86850; 86900; 86901; 93975; 99284

== ENCOUNTER → 2020-07-12 | Outpatient (CLI) | payer BC ==
[2020-07-12 13:34] LABS: Basophils % (A) 0 %; Eosinophils % (A) 0 %; HCT 36.5 % (34.0-46.0); Hypochromasia Marked; Lymphocytes % (A) 30 %; MCH 21.5 pg (25.0-35.0); MCHC 30.1 g/dL (31.0-37.0); Mean Platelet Volume 7.5; Microcytosis Moderate; Monocytes # (A) 0.3 k/uL (0-1.0); Monocytes % (A) 5 %; Neutrophils # (A) 4.2 k/uL (1.3-7.7); Neutrophils % (A) 64 %; Platelet Count 287 k/uL (150-450); Poikilocytosis Slight; RBC 5.13 m/uL (3.80-5.40); RDW 15.2 % (11.5-15.5); WBC 6.6 k/uL (3.8-10.6)
[2020-07-12 13:40] LABS: African American GFR (CKD) >90 (>60 ml/min/1.73 sqM); Anion Gap 6 mmol/L; Blood Urea Nitrogen 12 mg/dL (7-17); Calcium 9.9 mg/dL (8.4-10.2); Carbon Dioxide 30 mmol/L (22-30); Chloride 103 mmol/L (98-107); Glucose 123 mg/dL (74-99); Non-African American GFR(CKD) >90 (>60 ml/min/1.73 sqM); Potassium 4.6 mmol/L (3.5-5.1); Sodium 139 mmol/L (137-145)
[2020-07-12 13:41] LABS: MCV 71.3 fL (80.0-100.0)
== END | disposition home or self-care (01) ==
LOC: LABPAT 11:55
PROVIDERS: ATTEND Obstetrics & Gynecology
DX: Z01.818 Encounter for other preprocedural examination (principal)
CPT/HCPCS: 36415; 80048; 85025; 86850; 86900; 86901

== ENCOUNTER 2020-07-22 05:49 | Inpatient (IN) | payer BC ==
[2020-07-14 11:00] VITALS: BMI 52.4
--- NOTE | 2020-07-20 16:54 | P.HPOB ---
History of Present Illness H&P Date: 07/20/20 Chief Complaint: Menorrhagia Patient is a 35-year-old female with heavy vaginal bleeding. She relates that her bleeding is essentially all the time. She is on Provera to try and decrease the bleeding and as the lining of uterus but she has a very large 15 cm fibroid and it is slightly bigger than what it has been and her hemoglobin is now less than 10 she is therefore scheduled for a total abdominal hysterectomy with possible BSO. Risks/benefits/alternatives were reviewed with the patient in detail and all questions were answered for her prior to proceeding to the operating room. Due to the large size uterus we're moving forward with an abdominal procedure rather than a laparoscopic procedure. She was cleared by her primary care provider. Will have medicine see her during the hospitalization. On physical exam this is a morbidly obese female whose HEENT is otherwise unremarkable. Her heart is regular, lungs are clear, extremities are without pain. Abdomen is soft but have a large pelvic mass noted. Mass is also noted on pelvic exam no other gross findings on pelvic exam. Past Medical History Past Medical History: Diabetes Mellitus, GERD/Reflux, Hyperlipidemia, Hypertension, Sleep Apnea/CPAP/BIPAP Additional Past Medical History / Comment(s): PVC's, recent dx of sleep apnea-no cpap used yet, History of Any Multi-Drug Resistant Organisms: None Reported Past Surgical History: Adenoidectomy, Tonsillectomy Additional Past Surgical History / Comment(s): d & c x2, D&C with hysteroscopy Past Anesthesia/Blood Transfusion Reactions: No Reported Reaction Smoking Status: Former smoker - Past Family History Mother Family Medical History: No Reported History Medications and Allergies Home Medications Medication Instructions Recorded Confirmed Type Atorvastatin [Lipitor] 10 mg PO HS 04/01/20 07/14/20 History Ergocalciferol [Vitamin D2] 50,000 unit PO FR 04/01/20 07/14/20 History Triamterene/Hydrochlorothiazid 2 tab PO DAILY 04/01/20 07/14/20 History [Triamterene-Hctz 37.5-25 mg Tb] amLODIPine [Norvasc] 10 mg PO DAILY 04/01/20 07/14/20 History metFORMIN HCL 1,000 mg PO BID 04/01/20 07/14/20 History Iron(Dose Unknown) 1 tab PO DAILY 07/14/20 07/14/20 History Medroxyprogesterone Acetate 20 mg PO DAILY 07/14/20 07/14/20 History [Provera] Metoprolol Tartrate [Lopressor] 25 mg PO HS 07/14/20 07/14/20 History Semaglutide [Rybelsus] 3 mg PO QAM 07/14/20 07/14/20 History Venlafaxine HCl [Effexor XR] 150 mg PO QAM 07/14/20 07/14/20 History Allergies Allergy/AdvReac Type Severity Reaction Status Date / Time lisinopril AdvReac throat Verified 07/14/20 10:48 swelling Exam Osteopathic Statement: *. No significant issues noted on an osteopathic structural exam other than those noted in the History and Physical/Consult.
[~2020-07-22 05:49] MED LIST changes: -DEXAMETHASONE SOD PHOSPHATE 10 MG/ML 1 ML VIAL IV ONE; -HYDROmorphone 0.5 MG/0.5 ML SYRINGE IVP PRN; -LACTATED RINGERS 1,000 ML IV SCH; -ONDANSETRON 4 MG/2 ML VIAL IVP ONE; -Pre Op ABX Message 1 EACH MISC MISCELLANE ONE; -SCOPOLAMINE 1.5MG/72HR PATCH TRANSDERM ONE; +ceFAZolin 3 GM in SODIUM CHLORIDE 0.9% 100 ML IVPB PRN
[2020-07-22] MEDS ORDERED: ONDANSETRON 4 MG/2 ML VIAL IVP ONE (06:02)
[2020-07-22] MEDS ORDERED: DEXAMETHASONE SOD PHOSPHATE 4 MG/ML 1 ML VIAL IV ONE (06:02)
[2020-07-22] MEDS ORDERED: SCOPOLAMINE 1.5MG/72HR PATCH TRANSDERM ONE (06:02)
[2020-07-22] MEDS ORDERED: LIDOCAINE 1% (10MG/ML) FOR IV START INTRADERMA PRN (06:02)
[2020-07-22] MEDS: LACTATED RINGERS 1,000 ML IV SCH ×2 (06:45→11:00)
[2020-07-22 06:48] LABS: Glucose,Whole Blood 151 mg/dL (75-99)
[2020-07-22] MEDS ORDERED: HYDROmorphone 0.5 MG/0.5 ML SYRINGE IVP PRN (07:00)
[2020-07-22] MEDS ORDERED: MIDAZOLAM 2 MG/2 ML VIAL IVP ONE (07:09)
[2020-07-22] MEDS ORDERED: HEPARIN SODIUM,PORCINE 10,000 UNIT/ML 1 ML VIAL ONE (07:25)
[2020-07-22] MEDS ORDERED: GLYCOPYRROLATE 0.2 MG/ML 2 ML VIAL ONE (07:25)
[2020-07-22] MEDS ORDERED: PROPOFOL 10 MG/ML 20 ML VIAL IV ONE (07:25)
[2020-07-22] MEDS ORDERED: fentaNYL (PF) 50 MCG/ML 2 ML AMP ONE (07:25)
[2020-07-22] MEDS ORDERED: ROCURONIUM 10 MG/ML (10 ML VIAL) IV ONE (07:25)
[2020-07-22] MEDS ORDERED: NEOSTIGMINE 1 MG/ML 10 ML VIAL ONE (07:25)
[2020-07-22] MEDS ORDERED: ePHEDrine SULFATE/0.9% NACL/PF 50 MG/5 ML SYRINGE IV ONE (07:25)
[2020-07-22] MEDS ORDERED: LIDOCAINE 1% INJ 10MG/ML (20 ML MDV) ONE (07:25)
[2020-07-22] MEDS ORDERED: HYDROmorphone (PF) 1 MG/ML ONE (07:25)
[2020-07-22] MEDS ORDERED: SUCCINYLCHOLINE CHLORIDE VIAL 200 MG/10 ML VIAL IV ONE (07:25)
[2020-07-22] MEDS ORDERED: SIMETHICONE 80 MG CHEWABLE PO PRN (09:23)
[2020-07-22] MEDS ORDERED: ONDANSETRON 4 MG/2 ML VIAL IVP PRN (09:23)
--- NOTE | 2020-07-22 09:29 | P.OP ---
Date of Procedure: 07/22/20 Preoperative Diagnosis: Fibroid uterus and menorrhagia Postoperative Diagnosis: Same Procedure(s) Performed: total abdominal hysterectomy Anesthesia: RADHA Surgeon: Bigg Geronimo Ripshear Operator #1: Marion Navarro Estimated Blood Loss (ml): 100 IV fluids (ml): 600 Urine output (ml): 50 Pathology: other (Uterus and cervix) Condition: stable Disposition: floor Operative Findings: Grossly enlarged uterus Description of Procedure: Patient was taken to the operating suite where a general anesthetic was found be adequate. She was prepped and draped in the normal sterile fashion and placed in the dorsal supine position. Initially a Pfannenstiel skin incision was made and this incision was then carried through to the underlying layer of the fascia with the second knife. Fascia was then nicked in the midline and this opening was extended laterally with Choi scissors. Superior and inferior aspect of this incision were then grasped tented up and bluntly and sharply dissected off the rectus muscles. Rectus muscles were then divided midline and blunt dissection the peritoneum was made. This opening was then extended superiorly and inferiorly with good visualization of both bowel bladder. Self-retaining retractor was then inserted and bowels packed out of the operative field. Patient was then placed in steep Trendelenburg position and her bladder blade was placed. Uterus was identified and noted be grossly enlarged. It however had minimal Ascent and mobility. Long Rosa's were placed over the adnexa uterus was elevated as best as possible and he clamps were used to clamp the round ligament tubal complex bilaterally tissues clamped cut and tied. Moving inferiorly the uterine vascular was clamped bilaterally and then the bladder flap was entered dissected across and bluntly dissected out of the operative field. Bilateral uterine vascularity was then cut and tied moving inferiorly through the broad and cardinal ligaments tissues clamped cut and tied down to layer of the vagina in a stepwise fashion. Once the vagina was entered quarters were held and then the vaginal cuff was closed with 0 Vicryl suture running locking fashion. There was some bleeding at both corners and stabilizing sutures were placed to obtain excellent hemostasis. Once this was completed and uterus was up out of the operative field and sent to pathology pelvis was irrigated. Once hemostasis was felt to be obtained small piece of Gelfoam was placed over the vaginal cuff to verify complete hemostasis and other incidents removed. Bowel packing was removed and retractor was removed. Peritoneal layer was then delivered with hemostats and closed with 0 Vicryl suture. Fascial layer was then closed with 0 Vicryl suture. One layer of 3-0 Vicryl was placed in deep subcuticular tissues to reapproximate skin and close space. Skin was then closed with deborah. Sponge, lap, needle counts were all correct 2. Patient was then taken to the recovery room in stable and satisfactory condition.
[2020-07-22] MEDS: KETOROLAC 15 MG/ML 1 ML VIAL IVP PRN ×2 (10:04→16:10)
[2020-07-22 10:11] LABS: Glucose,Whole Blood 192 mg/dL (75-99)
[2020-07-22] MEDS ORDERED: BENZOCAINE/MENTHOL LOZENG 1 EACH LOZENGE MUCOUS MEM PRN (13:31)
[2020-07-22] MEDS: HEPARIN SODIUM,PORCINE 5,000 UNIT/ML 1 ML VIAL SQ SCH (16:11)
--- NOTE | 2020-07-22 17:08 | P.CONS ---
History of Present Illness - Reason for Consult Consult date: 07/22/20 - Chief Complaint menorrhagia and uterine fibroid - History of Present Illness This is a 35-year-old female, one of our office patients, with a past medical history of diabetes, hypertension, hyperlipidemia, GERD, recent diagnosis of sleep apnea, anxiety and depression. Patient has a history of very heavy vaginal bleeding and anemia. She is being followed by Dr. Geronimo who tried her on Provera in attempts to decrease the bleeding, she was also noted to have a very large 15 cm fibroid. Despite treatment, patient still continued to have heavy vaginal bleeding and anemia. She was then scheduled for a total abdominal hysterectomy with possible BSO. Patient underwent surgery this morning without any major complications. Patient complains of mild discomfort in the lower abdomen, surgical site dressing without any shadow drainage. She denies any nausea, vomiting, diarrhea, shortness of breath, chest pain. Vital signs are stable. She is tolerating a clear liquid diet Review of Systems Constitutional: Reports fatigue, Denies chills, Denies fever Ears, nose, mouth and throat: Denies dysphagia, Denies headache, Denies nasal congestion, Denies nasal discharge, Denies sinus pain, Denies sinus pressure, Denies sore throat Cardiovascular: Denies chest pain, Denies dyspnea on exertion, Denies leg edema, Denies orthopnea, Denies shortness of breath, Denies syncope Respiratory: Denies congestion, Denies cough, Denies pain, Denies sleep apnea, Denies wheezing Gastrointestinal: Denies abdominal pain, Denies heartburn, Denies loss of appetite, Denies nausea, Denies vomiting Genitourinary: Denies dysuria, Denies hematuria, Denies hot flashes, Denies pelvic pain, Denies urgency Menstruation: Reports menses 8 or > days, Reports menses variable, Reports period heavy Musculoskeletal: Denies atrophy, Denies fractures, Denies gait dysfunction, Denies low back pain, Denies neck pain, Denies neck stiffness Integumentary: Denies lesions, Denies pruritus, Denies rash, Denies sores, Denies wounds Neurological: Denies confusion, Denies headaches, Denies paralysis, Denies seizures, Denies syncope, Denies visual changes Psychiatric: Denies anxiety, Denies confusion, Denies depression, Denies irritability, Denies mood swings, Denies paranoia Endocrine: Denies fatigue, Denies nocturia, Denies palpitations, Denies polyphagia, Denies polyuria Hematologic/Lymphatic: Denies easy bleeding, Denies lymphadenopathy, Denies thrombophilia Past Medical History Past Medical History: Diabetes Mellitus, GERD/Reflux, Hyperlipidemia, Hypertension, Sleep Apnea/CPAP/BIPAP Additional Past Medical History / Comment(s): PVC's, recent dx of sleep apnea-no cpap used yet, History of Any Multi-Drug Resistant Organisms: None Reported Past Surgical History: Adenoidectomy, Tonsillectomy Additional Past Surgical History / Comment(s): d & c x2, D&C with hysteroscopy Past Anesthesia/Blood Transfusion Reactions: No Reported Reaction Past Psychological History: Anxiety, Depression Smoking Status: Former smoker Past Alcohol Use History: Rare Additional Past Alcohol Use History / Comment(s): quit smoking 3-4 yrs ago, smoked for 1 yr Past Drug Use History: None Reported - Past Family History Mother History Unknown: Yes Additional Family Medical History / Comment(s): at age 52 from sepsis Father Additional Family Medical History / Comment(s): at age 50 from motor vehicle accident Medications and Allergies Home Medications Medication Instructions Recorded Confirmed Type Atorvastatin [Lipitor] 10 mg PO HS 04/01/20 07/22/20 History Ergocalciferol [Vitamin D2] 50,000 unit PO FR 04/01/20 07/22/20 History Triamterene/Hydrochlorothiazid 2 tab PO DAILY 04/01/20 07/22/20 History [Triamterene-Hctz 37.5-25 mg Tb] amLODIPine [Norvasc] 10 mg PO DAILY 04/01/20 07/22/20 History metFORMIN HCL 1,000 mg PO BID 04/01/20 07/22/20 History Iron(Dose Unknown) 1 tab PO DAILY 07/14/20 07/22/20 History Medroxyprogesterone Acetate 20 mg PO DAILY 07/14/20 07/22/20 History [Provera] Metoprolol Tartrate [Lopressor] 25 mg PO HS 07/14/20 07/22/20 History Semaglutide [Rybelsus] 3 mg PO QAM 07/14/20 07/22/20 History Venlafaxine HCl [Effexor XR] 150 mg PO QAM 07/14/20 07/22/20 History Allergies Allergy/AdvReac Type Severity Reaction Status Date / Time lisinopril AdvReac throat Verified 07/22/20 06:13 swelling Physical Exam Vitals: Vital Signs Temp Pulse Pulse Resp BP Pulse Ox 07/22/20 13:46 60 18 106/64 96 07/22/20 13:15 78 16 109/66 96 07/22/20 12:45 84 16 99/58 94 L 07/22/20 12:15 98.3 F 80 16 99/60 96 07/22/20 11:45 90 16 98/62 94 L 07/22/20 11:30 85 16 102/56 94 L 07/22/20 11:15 84 16 99/58 94 L 07/22/20 11:00 88 16 95/51 92 L 07/22/20 10:50 98.2 F 76 16 108/54 94 L 07/22/20 10:27 94 16 110/57 97 07/22/20 10:12 77 18 111/55 96 07/22/20 09:57 83 18 114/57 96 07/22/20 09:42 78 16 115/56 95 07/22/20 09:27 99.9 F H 90 16 124/61 95 07/22/20 07:24 89 16 128/61 98 07/22/20 06:12 98.3 F 92 16 150/83 97 Intake and Output 07/22/20 07/22/20 07/22/20 06:59 14:59 22:59 Intake Total 200 800 Output Total 180 Balance 200 620 Intake: IV 200 800 Output: Urine 80 Estimated Blood Loss 100 Other: Weight 139.7 kg 139.7 kg - Constitutional General appearance: morbidly obese, no acute distress - EENT Eyes: EOMI, PERRLA, normal appearance ENT: hearing grossly normal, normal oropharynx, no pharyngeal erythema, no thrush - Neck Neck: no lymphadenopathy, normal ROM, no rigidity, no stridor, no thyromegaly - Cardiovascular Rhythm: regular Heart sounds: normal: S1, S2 - Gastrointestinal General gastrointestinal: no hepatomegaly, no organomegaly, soft, no tenderness - Neurologic Neurologic: CNII-XII intact - Musculoskeletal Musculoskeletal: generalized weakness, strength equal bilaterally - Psychiatric Psychiatric: A&O x's 3, appropriate affect, intact judgment & insight Results Labs: Abnormal Lab Results - Last 24 Hours (Table) 07/22/20 07/22/20 Range/Units 06:45 10:08 POC Glucose (mg/dL) 151 H 192 H (75-99) mg/dL Assessment and Plan Plan: 1. Menorrhagia with large uterine fibroid status post abdominal hysterectomy. Being followed by [facility] 2. Diabetes type 2. Home medications include metformin and was recently started on Rybelsus, recent A1c was 7.3%. Will hold Rybelsus and to NovoLog sliding scale 3. Hypertension. Continue on Norvasc 10 mg, metoprolol 25 mg and Dyazide 2 tabs daily. 4. Hyperlipidemia. Continue Lipitor 10 mg daily 5. History of anxiety and depression. Continue Effexor 150 mg daily 6. Sleep apnea. Recent diagnosis, will follow up outpatient for CPAP 7. GI prophylaxis 8. DVT prophylaxis The above impression and plan of care have been discussed and directed by signing physician. Ana Miller nurse practitioner acting as scribe for signing physician.
[2020-07-22] MEDS ORDERED: metFORMIN 500 MG TAB PO SCH (17:30)
[2020-07-22] MEDS: INSULIN ASPART (NovoLOG) 100 UNIT/ML VIAL SQ SCH ×2 (17:42→21:33)
[2020-07-22 17:44] LABS: Glucose,Whole Blood 174 mg/dL (75-99)
[2020-07-22] MEDS: METOPROLOL TARTRATE 25 MG TAB PO SCH (21:05)
[2020-07-22] MEDS: SENNOSIDES-DOCUSATE SODIUM 1 EACH TAB PO SCH (21:06)
[2020-07-22] MEDS: ATORVASTATIN 10 MG TAB PO SCH (21:06)
[2020-07-22 21:12] LABS: Glucose,Whole Blood 144 mg/dL (75-99)
[2020-07-23] MEDS: HEPARIN SODIUM,PORCINE 5,000 UNIT/ML 1 ML VIAL SQ SCH ×4 (00:09→23:40)
[2020-07-23] MEDS: HYDROcodone/APAP 7.5-325MG 1 EACH TAB PO PRN ×4 (00:29→20:36)
[2020-07-23 05:17] LABS: Basophils % (A) 0 %; Eosinophils % (A) 0 %; HCT 36.6 % (34.0-46.0); HGB 11.4 gm/dL (11.4-16.0); Hypochromasia Moderate; Lymphocytes # (A) 2.8 k/uL (1.0-4.8); Lymphocytes % (A) 24 %; MCHC 31.3 g/dL (31.0-37.0); MCV 70.5 fL (80.0-100.0); Microcytosis Moderate; Monocytes # (A) 0.8 k/uL (0-1.0); Monocytes % (A) 7 %; Neutrophils % (A) 68 %; Platelet Count 361 k/uL (150-450); RBC 5.19 m/uL (3.80-5.40); RDW 15.9 % (11.5-15.5); WBC 11.8 k/uL (3.8-10.6)
[2020-07-23 07:48] LABS: Glucose,Whole Blood 148 mg/dL (75-99)
[2020-07-23] MEDS: INSULIN ASPART (NovoLOG) 100 UNIT/ML VIAL SQ SCH ×4 (07:58→21:21)
[2020-07-23] MEDS: TRIAMTERENE-HCTZ 37.5-25MG 1 EACH TAB PO SCH (08:01)
[2020-07-23] MEDS: VENLAFAXINE HCL ER 150 MG CAP PO SCH (08:02)
[2020-07-23] MEDS: amLODIPine 10 MG TAB PO SCH (08:02)
[2020-07-23] MEDS: SENNOSIDES-DOCUSATE SODIUM 1 EACH TAB PO SCH ×2 (08:08→21:16)
--- NOTE | 2020-07-23 08:10 | P.PN ---
Progress Note - Text Progress Note Date: 07/23/20 Patient is doing overall well this morning. She does relate she had some difficulty and voiding last night but she has been able to void since that difficulty. Likely secondary to urethral spasm. Her vital signs are otherwise relatively stable and she is afebrile. We will plan ambulation and increase of diet today with continued care otherwise and your medical management as she does have some significant medical issues. All other questions are answered for her at this time. We'll plan to remove the dressing later this morning her into the afternoon and verify incision is intact. On physical exam heart is regular, lungs are clear and her abdomen is soft and nontender. Extremities are without pain with minimal edema.
--- NOTE | 2020-07-23 08:43 | P.PN ---
Progress Note - Text Progress Note Date: 07/23/20 Patient seen at 645 am Postoperative day 1 status NANCY under general anesthesia with spinal anesthesia given preoperatively, and intrathecal morphine given for postoperative analgesia, patient doing well, there is no anesthesia related complications Patient had no headache, vital signs stable Assessment and plan = postop day 1 status post NANCY, doing well there is no anesthesia related complication
[2020-07-23] MEDS ORDERED: NON FORMULARY DRUG (Semaglutide [Rybelsus] 3 MG Tablet) PO SCH (09:00)
[2020-07-23] MEDS: IBUPROFEN 600 MG TAB PO PRN ×2 (11:47→18:12)
[2020-07-23 12:49] LABS: Glucose,Whole Blood 143 mg/dL (75-99)
[2020-07-23] MEDS: CALCIUM CARBONATE 500 MG CHEWABLE PO PRN ×2 (12:58→18:09)
--- NOTE | 2020-07-23 13:32 | P.PN ---
Subjective Progress Note Date: 07/23/20 HISTORY OF PRESENT ILLNESS This is a 35-year-old female, one of our office patients, with a past medical history of diabetes, hypertension, hyperlipidemia, GERD, recent diagnosis of sleep apnea, anxiety and depression. Patient has a history of very heavy vaginal bleeding and anemia. She is being followed by Dr. Geronimo who tried her on Provera in attempts to decrease the bleeding, she was also noted to have a very large 15 cm fibroid. Despite treatment, patient still continued to have heavy vaginal bleeding and anemia. She was then scheduled for a total abdominal hysterectomy with possible BSO. Patient underwent surgery this morning without any major complications. Patient complains of mild discomfort in the lower abdomen, surgical site dressing without any shadow drainage. She denies any nausea, vomiting, diarrhea, shortness of breath, chest pain. Vital signs are stable. She is tolerating a clear liquid diet 07/23: Patient states the pain is currently controlled. She only has a little pain at this time. She has been afebrile, heart rate 72, blood pressure 129/84, pulse ox 97% on room air. WBC 11.8, hemoglobin 11.4, platelet count 371. Blood sugars running in the 140s. Patient is scheduled to resume a consistent carb diet, we will resume metformin this evening dose. Patient encouraged to continue incentive spirometry and calf pumps. She will be resuming Rybelsus at the time of discharge. Anticipate probable discharge tomorrow. REVIEW OF SYSTEMS Constitutional: Reports fatigue, Denies chills, Denies fever Ears, nose, mouth and throat: Denies dysphagia, Denies headache, Denies nasal congestion, Denies nasal discharge, Denies sinus pain, Denies sinus pressure, Denies sore throat Cardiovascular: Denies chest pain, Denies dyspnea on exertion, Denies leg edema, Denies orthopnea, Denies shortness of breath, Denies syncope Respiratory: Denies congestion, Denies cough, Denies pain, Denies sleep apnea, Denies wheezing Gastrointestinal: Denies abdominal pain, Denies heartburn, Denies loss of appeti te, Denies nausea, Denies vomiting Genitourinary: Denies dysuria, Denies hematuria, Denies hot flashes, Denies pelvic pain, Denies urgency Menstruation: Reports menses 8 or > days, Reports menses variable, Reports period heavy Musculoskeletal: Denies atrophy, Denies fractures, Denies gait dysfunction, Denies low back pain, Denies neck pain, Denies neck stiffness Integumentary: Denies lesions, Denies pruritus, Denies rash, Denies sores, Denies wounds Neurological: Denies confusion, Denies headaches, Denies paralysis, Denies seizures, Denies syncope, Denies visual changes Psychiatric: Denies anxiety, Denies confusion, Denies depression, Denies irritability, Denies mood swings, Denies paranoia Endocrine: Denies fatigue, Denies nocturia, Denies palpitations, Denies polyphagia, Denies polyuria PHYSICAL EXAMINATION Gen: This is a morbidly obese 35-year-old female. Patient is resting in bed and appears to be comfortable. HEENT: Head is atraumatic, normocephalic. Pupils equal, round. Sclerae is anicteric. NECK: Supple. No JVD. No lymphadenopathy. No thyromegaly. LUNGS: Clear to auscultation. No wheezes or rhonchi. No intercostal retractions. HEART: Regular rate and rhythm. No murmur. ABDOMEN: Soft. Bowel sounds are present. No masses. No tenderness. EXTREMITIES: No pedal edema. No calf tenderness. NEUROLOGICAL: Patient is awake, alert and oriented x3. Cranial nerves 2 through 12 are grossly intact. ASSESSMENT AND PLAN 1. Menorrhagia with large uterine fibroid status post abdominal hysterectomy. Being followed by [facility] 2. Diabetes type 2. Home medications include metformin and was recently started on Rybelsus, recent A1c was 7.3%. Will hold Rybelsus and to NovoLog sliding scale 3. Hypertension. Continue on Norvasc 10 mg, metoprolol 25 mg and Dyazide 2 tabs daily. 4. Hyperlipidemia. Continue Lipitor 10 mg daily 5. History of anxiety and depression. Continue Effexor 150 mg daily 6. Sleep apnea. Recent diagnosis, will need follow up outpatient for CPAP 7. GI prophylaxis. Pepcid 8. DVT prophylaxis. Heparin subcu. DISCHARGE PLAN Home Impression and plan of care have been directed as dictated by the signing physician. Olga Porter nurse practitioner acting as scribe for signing p annie. Objective - Vital Signs Vital signs: Vital Signs Temp 98.8 F 07/23/20 04:00 Pulse 71 07/23/20 04:00 Resp 16 01/29/21 04:00 BP 128/79 07/23/20 04:00 Pulse Ox 98 07/23/20 04:00 Intake & Output 07/22/20 07/23/20 07/23/20 18:59 06:59 18:59 Intake Total 800 500 Output Total 540 1200 Balance 260 -700 Weight 139.7 kg Intake: IV 800 Oral 500 Output: Urine 440 1200 Estimated Blood Loss 100 - Labs CBC & Chem 7: 07/23/20 05:02 Labs: Abnormal Lab Results - Last 24 Hours (Table) 07/22/20 07/22/20 07/22/20 Range/Units 10:08 17:32 21:10 WBC (3.8-10.6) k/uL MCV (80.0-100.0) fL MCH (25.0-35.0) pg RDW (11.5-15.5) % Neutrophils # (1.3-7.7) k/uL POC Glucose (mg/dL) 192 H 174 H 144 H (75-99) mg/dL 07/23/20 07/23/20 Range/Units 05:02 07:47 WBC 11.8 H (3.8-10.6) k/uL MCV 70.5 L (80.0-100.0) fL MCH 22.0 L (25.0-35.0) pg RDW 15.9 H (11.5-15.5) % Neutrophils # 8.0 H (1.3-7.7) k/uL POC Glucose (mg/dL) 148 H (75-99) mg/dL
[2020-07-23 18:04] LABS: Glucose,Whole Blood 134 mg/dL (75-99)
[2020-07-23] MEDS: metFORMIN 500 MG TAB PO SCH (18:12)
[2020-07-23] MEDS: ATORVASTATIN 10 MG TAB PO SCH (21:16)
[2020-07-23] MEDS: METOPROLOL TARTRATE 25 MG TAB PO SCH (21:16)
[2020-07-23 21:20] LABS: Glucose,Whole Blood 122 mg/dL (75-99)
[2020-07-24] MEDS: IBUPROFEN 600 MG TAB PO PRN ×2 (00:26→08:14)
[2020-07-24] MEDS: CALCIUM CARBONATE 500 MG CHEWABLE PO PRN (00:26)
[2020-07-24] MEDS: HYDROcodone/APAP 7.5-325MG 1 EACH TAB PO PRN ×2 (02:30→12:01)
[2020-07-24 07:40] LABS: Glucose,Whole Blood 137 mg/dL (75-99)
[2020-07-24] MEDS: INSULIN ASPART (NovoLOG) 100 UNIT/ML VIAL SQ SCH ×2 (07:58→12:12)
[2020-07-24] MEDS: HEPARIN SODIUM,PORCINE 5,000 UNIT/ML 1 ML VIAL SQ SCH (08:06)
[2020-07-24] MEDS: TRIAMTERENE-HCTZ 37.5-25MG 1 EACH TAB PO SCH (08:07)
[2020-07-24] MEDS: FAMOTIDINE 20 MG TAB PO SCH ×2 (08:07→08:09)
[2020-07-24] MEDS: metFORMIN 500 MG TAB PO SCH (08:07)
[2020-07-24] MEDS: VENLAFAXINE HCL ER 150 MG CAP PO SCH (08:07)
[2020-07-24] MEDS: amLODIPine 10 MG TAB PO SCH (08:07)
[2020-07-24] MEDS: SENNOSIDES-DOCUSATE SODIUM 1 EACH TAB PO SCH (08:14)
[2020-07-24 08:50] VITALS: BP 138/75; PULSE 81; RESP 16; TEMP 98.4
[2020-07-24 12:08] LABS: Glucose,Whole Blood 131 mg/dL (75-99)
--- NOTE | 2020-07-24 12:28 | P.DS ---
Providers Date of admission: 07/22/20 05:49 Expected date of discharge: 07/24/20 Attending physician: Bigg Geronimo Consults: 07/22/20 13:02 Consult Physician Urgent Consulting Provider: Sam Alexander Consult Reason/Comments: POST OP, DIABETIC, ANXIETY, HYPERTENSIVE, MEDICATION RESTART. Do you want consulting provider notified?: Yes Primary care physician: Sam Benjamin [place] Hospital Course: This is a 35-year-old female who underwent a total abdominal hysterectomy on 07/22/2020. Her postoperative course has been essentially uncomplicated. She has been followed by medicine for control of her medical problems. She is passing flatus but no bowel movement yet. Her pain is fairly well controlled with ibuprofen and [place]. Bleeding has been none. She is urinating without difficulty. Vital signs are stable. Abdomen is soft with positive bowel sounds 4. Incision is clean dry and intact with deborah in place. Extremities show negative Homans. Impression is status post total abdominal hysterectomy postoperative day #2. Plan is to discharge home today. Routine postoperative instructions are given. She is advised follow-up with Dr. Geronimo in the office on Sunday or Sunday for staple removal. She is advised to call the office if she has any further questions or concerns prior to her postoperative appointment. She is instructed no heavy lifting. She was counseled on opioid use and has signed a opioid start talking form. She will be given prescriptions for ibuprofen and [place]. Procedures: Total abdominal hysterectomy on 07/22/2020 Patient Condition at Discharge: Stable Plan - Discharge Summary Discharge Rx Participant: No New Discharge Prescriptions: New Ibuprofen [Motrin] 600 mg PO Q6H PRN #60 tab PRN Reason: Pain HYDROcodone/APAP 7.5-325MG [[place] 7.5-325] 1 each PO Q6H PRN #28 tab PRN Reason: Pain Continue metFORMIN HCL 1,000 mg PO BID Ergocalciferol [Vitamin D2 (DRISDOL)] 50,000 unit PO FR Atorvastatin [Lipitor] 10 mg PO HS amLODIPine [Norvasc] 10 mg PO DAILY Triamterene/Hydrochlorothiazid [Triamterene-Hctz 37.5-25 mg Tb] 2 tab PO DAILY Semaglutide [Rybelsus] 3 mg PO QAM Venlafaxine HCl [Effexor XR] 150 mg PO QAM Medroxyprogesterone Acetate [Provera] 20 mg PO DAILY Metoprolol Tartrate [Lopressor] 25 mg PO HS Iron(Dose Unknown) 1 tab PO DAILY Discharge Medication List Atorvastatin [Lipitor] 10 mg PO HS 04/01/20 [History] Ergocalciferol [Vitamin D2 (DRISDOL)] 50,000 unit PO FR 04/01/20 [History] Triamterene/Hydrochlorothiazid [Triamterene-Hctz 37.5-25 mg Tb] 2 tab PO DAILY 04/01/20 [History] amLODIPine [Norvasc] 10 mg PO DAILY 04/01/20 [History] metFORMIN HCL 1,000 mg PO BID 04/01/20 [History] Iron(Dose Unknown) 1 tab PO DAILY 07/14/20 [History] Medroxyprogesterone Acetate [Provera] 20 mg PO DAILY 07/14/20 [History] Metoprolol Tartrate [Lopressor] 25 mg PO HS 07/14/20 [History] Semaglutide [Rybelsus] 3 mg PO QAM 07/14/20 [History] Venlafaxine HCl [Effexor XR] 150 mg PO QAM 07/14/20 [History] HYDROcodone/APAP 7.5-325MG [[place] 7.5-325] 1 each PO Q6H PRN #28 tab 07/24/20 [Rx] Ibuprofen [Motrin] 600 mg PO Q6H PRN #60 tab 07/24/20 [Rx] Follow up Appointment(s)/Referral(s): Bigg Geronimo DO [Doctor of Osteopathic Medicine] - 3 Days Activity/Diet/Wound Care/Special Instructions: Activity as tolerated. Diet as tolerated. May shower, but no tub baths for 1 week. No strenuous lifting. No driving until off of narcotic pain medication. Discharge Disposition: HOME SELF-CARE
== END 2020-07-24 12:40 | disposition home or self-care (01) | DRG 742 ==
LOC: 2ORMAIN 05:49 → 4FBP 09:15
PROVIDERS: ADMIT Obstetrics & Gynecology; ATTEND Obstetrics & Gynecology
PROC: 0UTC0ZZ Resection of Cervix, Open Approach (ICD-10-PCS; principal; 2020-07-22 07:30)
PROC: 0UT90ZZ Resection of Uterus, Open Approach (ICD-10-PCS; principal; 2020-07-22 07:30)
DX: D25.9 Leiomyoma of uterus, unspecified (principal); Z68.43 Body mass index [BMI] 50.0-59.9, adult; E66.01 Morbid (severe) obesity due to excess calories; E11.9 Type 2 diabetes mellitus without complications; D64.9 Anemia, unspecified; N92.0 Excessive and frequent menstruation with regular cycle; I49.3 Ventricular premature depolarization; K21.9 Gastro-esophageal reflux disease without esophagitis; E78.5 Hyperlipidemia, unspecified; I10 Essential (primary) hypertension; N35.92 Unspecified urethral stricture, female; G47.30 Sleep apnea, unspecified; F41.9 Anxiety disorder, unspecified; F32.9 Major depressive disorder, single episode, unspecified; Z90.89 Acquired absence of other organs; Z87.891 Personal history of nicotine dependence; Z87.42 Personal history of other diseases of the female genital tract; Z98.890 Other specified postprocedural states; Z79.84 Long term (current) use of oral hypoglycemic drugs; Z79.899 Other long term (current) drug therapy; Z83.1 Family history of other infectious and parasitic diseases; Z88.8 Allergy status to other drugs, medicaments and biological substances
CPT/HCPCS: 81025; 85025; 86850; 86900; 86901; 88307

== ENCOUNTER 2021-03-24 00:04 | Emergency (ER) | payer BC ==
[2021-03-24 00:16] VITALS: BP 132/86; PULSE 82; TEMP 98.6
[2021-03-24 00:39] VITALS: RESP 18
--- NOTE | 2021-03-24 01:04 | ED ---
General Adult HPI - General Chief complaint: Upper Respiratory Infection Stated complaint: LT flank pain, vomiting Time Seen by Provider: 03/24/21 00:26 Source: patient Mode of arrival: ambulatory Limitations: no limitations - History of Present Illness Initial comments: 36-year-old female with a past medical history of diabetes mellitus, hyperlipidemia, hypertension presents to the emergency room for chief point of cough. Patient states she has a cough and congestion that has been ongoing for about a week. States that tonight when she coughs her upper abdomen on both sides hurts like she strained something. Patient denies shortness of breath. Patient also started have some nausea vomiting today. States she is able to keep down fluids fine but when she eats solid foods it makes her nauseous. Patient states her highest temperature has been 99.7 today. No recent Motrin or Tylenol.Patient has no other complaints at this time including shortness of breath, chest pain, abdominal pain, nausea or vomiting, headache, or visual changes. - Related Data Home Medications Medication Instructions Recorded Confirmed Atorvastatin [Lipitor] 10 mg PO HS 04/01/20 07/22/20 Ergocalciferol [Vitamin D2 50,000 unit PO FR 04/01/20 07/22/20 (DRISDOL)] Triamterene/Hydrochlorothiazid 2 tab PO DAILY 04/01/20 07/22/20 [Triamterene-Hctz 37.5-25 mg Tb] amLODIPine [Norvasc] 10 mg PO DAILY 04/01/20 07/22/20 metFORMIN HCL [Glucophage] 1,000 mg PO BID 04/01/20 07/22/20 Iron(Dose Unknown) 1 tab PO DAILY 07/14/20 07/22/20 Medroxyprogesterone Acetate 20 mg PO DAILY 07/14/20 07/22/20 [Provera] Metoprolol Tartrate [Lopressor] 25 mg PO HS 07/14/20 07/22/20 Semaglutide [Rybelsus] 3 mg PO QAM 07/14/20 07/22/20 Venlafaxine HCl [Effexor XR] 150 mg PO QAM 07/14/20 07/22/20 Previous Rx's Medication Instructions Recorded HYDROcodone/APAP 7.5-325MG [[place] 1 each PO Q6H PRN #28 tab 01/30/21 7.5-325] Ibuprofen [Motrin] 600 mg PO Q6H PRN #60 tab 07/24/20 Albuterol Inhaler [Ventolin Hfa 2 puff INHALATION RT-QID PRN #8 gm 03/24/21 Inhaler] Benzonatate [Tessalon Perles] 200 mg PO Q8H PRN #15 cap 03/24/21 guaiFENesin [Mucinex] 600 mg PO Q12HR PRN #20 tab 03/24/21 predniSONE 50 mg PO DAILY #5 tablet 03/24/21 Allergies Allergy/AdvReac Type Severity Reaction Status Date / Time lisinopril AdvReac throat Verified 03/24/21 00:13 swelling Review of Systems ROS Statement: Those systems with pertinent positive or pertinent negative responses have been documented in the HPI. ROS Other: All systems not noted in ROS Statement are negative. Past Medical History Past Medical History: Diabetes Mellitus, GERD/Reflux, Hyperlipidemia, Hypertension, Sleep Apnea/CPAP/BIPAP Additional Past Medical History / Comment(s): PVC's, recent dx of sleep apnea-no cpap used yet, History of Any Multi-Drug Resistant Organisms: None Reported Past Surgical History: Adenoidectomy, Hysterectomy, Tonsillectomy Additional Past Surgical History / Comment(s): d & c x2, D&C with hysteroscopy Past Anesthesia/Blood Transfusion Reactions: No Reported Reaction Past Psychological History: Anxiety, Depression Smoking Status: Former smoker Past Alcohol Use History: Rare Past Drug Use History: Marijuana - Past Family History Mother Family Medical History: No Reported History Father Additional Family Medical History / Comment(s): at age 50 from motor vehicle accident General Exam Limitations: no limitations General appearance: alert, in no apparent distress Head exam: Present: atraumatic Eye exam: Present: normal appearance, PERRL, EOMI. Absent: scleral icterus, conjunctival injection ENT exam: Present: normal exam, mucous membranes moist Neck exam: Present: normal inspection, full ROM. Absent: tenderness Respiratory exam: Present: wheezes (minimal wheeze). Absent: respiratory distress Cardiovascular Exam: Present: regular rate, normal rhythm, normal heart sounds GI/Abdominal exam: Present: soft, normal bowel sounds. Absent: distended, tenderness Neurological exam: Present: alert Course Vital Signs 03/24/21 03/24/21 00:14 00:34 Temperature 98.6 F Pulse Rate 82 Respiratory 20 18 Rate Blood Pressure 132/86 O2 Sat by Pulse 99 Oximetry Medical Decision Making - Medical Decision Making Vitals are stable. Patient is well-appearing. Coronavirus is negative. Chest x-rays of the normal chest, no change. There is slight wheezing on exam. We will start patient on steroids and albuterol inhaler. She will follow up with her doctor. She will return for any worsening symptoms. - Lab Data Lab Results 03/24/21 Range/Units 00:46 Coronavirus (PCR) Not Detected (Not Detectd) Disposition Clinical Impression: Cough Disposition: HOME SELF-CARE Condition: Good Instructions (If sedation given, give patient instructions): Upper Respiratory Infection (ED) Additional Instructions: Please take medications as directed. Follow-up with your doctor in one to 2 days. Return to the emergency room for any worsening symptoms. Prescriptions: guaiFENesin [Mucinex] 600 mg PO Q12HR PRN #20 tab PRN Reason: Congestion predniSONE 50 mg PO DAILY #5 tablet Benzonatate [Tessalon Perles] 200 mg PO Q8H PRN #15 cap PRN Reason: Cough Albuterol Inhaler [Ventolin Hfa Inhaler] 2 puff INHALATION RT-QID PRN #8 gm PRN Reason: Shortness Of Breath Is patient prescribed a controlled substance at d/c from ED?: No Referrals: Sam Alexander MD [Primary Care Provider] - 1-2 days Time of Disposition: 02:04
--- NOTE | 2021-03-24 01:46 | XR ---
EXAMINATION TYPE: XR chest 2V DATE OF EXAM: 03/24/2021 COMPARISON: 06/29/2017 HISTORY: Cough TECHNIQUE: FINDINGS: Heart and mediastinum are normal. Lungs are clear. Diaphragm is normal. Bony thorax appears normal. IMPRESSION: Normal chest. No change.
[2021-03-24] MEDS: predniSONE 50 MG TAB PO STA ×2 (02:19→02:20)
== END 2021-03-24 02:22 | disposition home or self-care (01) ==
LOC: EC 00:04
DX: R05 Cough (principal); R11.2 Nausea with vomiting, unspecified; R09.89 Other specified symptoms and signs involving the circulatory and respiratory systems; R10.9 Unspecified abdominal pain; E11.9 Type 2 diabetes mellitus without complications; I10 Essential (primary) hypertension; E78.5 Hyperlipidemia, unspecified; G47.30 Sleep apnea, unspecified; F32.9 Major depressive disorder, single episode, unspecified; F41.9 Anxiety disorder, unspecified; F12.90 Cannabis use, unspecified, uncomplicated; K21.9 Gastro-esophageal reflux disease without esophagitis; Z87.891 Personal history of nicotine dependence; Z20.822 Contact with and (suspected) exposure to COVID-19; Z79.1 Long term (current) use of non-steroidal anti-inflammatories (NSAID); Z79.52 Long term (current) use of systemic steroids; Z79.84 Long term (current) use of oral hypoglycemic drugs; Z79.899 Other long term (current) drug therapy; Z88.8 Allergy status to other drugs, medicaments and biological substances
CPT/HCPCS: 71046; 87635; 99284

== ENCOUNTER 2021-04-10 15:59 | Emergency (ER) | payer BC ==
[2021-04-10] MEDS ORDERED: ONDANSETRON 4 MG/2 ML VIAL IVP STA (17:05)
[2021-04-10] MEDS ORDERED: SODIUM CHLORIDE 0.9% 1,000 ML IV ONE (17:05)
[2021-04-10] MEDS ORDERED: DEXAMETHASONE SOD PHOSPHATE 10 MG/ML 1 ML VIAL IV STA (17:05)
[2021-04-10] MEDS ORDERED: ACETAMINOPHEN TAB 500 MG TAB PO STA (17:12)
--- NOTE | 2021-04-10 17:12 | ED ---
General Adult HPI - General Chief complaint: Recheck/Abnormal Lab/Rx Stated complaint: Covid +, Weakness Time Seen by Provider: 04/10/21 17:00 Source: patient, RN notes reviewed, old records reviewed Mode of arrival: ambulatory Limitations: no limitations - History of Present Illness Initial comments: 36-year-old female presenting with chief complaint of vomiting and diarrhea. Patient was diagnosed with coronavirus 3 days ago. She's had symptoms for proximally 5 days. She has had some cough and mild dyspnea. She has been monitoring her pulse oximetry at home. She's had difficulty keeping fluids down secondary to vomiting. No abdominal pain. Patient is unvaccinated. - Related Data Home Medications Medication Instructions Recorded Confirmed Atorvastatin [Lipitor] 10 mg PO HS 04/01/20 07/22/20 Ergocalciferol [Vitamin D2 50,000 unit PO FR 04/01/20 07/22/20 (DRISDOL)] Triamterene/Hydrochlorothiazid 2 tab PO DAILY 04/01/20 07/22/20 [Triamterene-Hctz 37.5-25 mg Tb] amLODIPine [Norvasc] 10 mg PO DAILY 04/01/20 07/22/20 metFORMIN HCL [Glucophage] 1,000 mg PO BID 04/01/20 07/22/20 Iron(Dose Unknown) 1 tab PO DAILY 07/14/20 07/22/20 Medroxyprogesterone Acetate 20 mg PO DAILY 07/14/20 07/22/20 [Provera] Metoprolol Tartrate [Lopressor] 25 mg PO HS 07/14/20 07/22/20 Semaglutide [Rybelsus] 3 mg PO QAM 07/14/20 07/22/20 Venlafaxine HCl [Effexor XR] 150 mg PO QAM 07/14/20 07/22/20 Previous Rx's Medication Instructions Recorded HYDROcodone/APAP 7.5-325MG [[place] 1 each PO Q6H PRN #28 tab 07/24/20 7.5-325] Ibuprofen [Motrin] 600 mg PO Q6H PRN #60 tab 07/24/20 Albuterol Inhaler [Ventolin Hfa 2 puff INHALATION RT-QID PRN #8 gm 03/24/21 Inhaler] Benzonatate [Tessalon Perles] 200 mg PO Q8H PRN #15 cap 03/24/21 guaiFENesin [Mucinex] 600 mg PO Q12HR PRN #20 tab 03/24/21 predniSONE 50 mg PO DAILY #5 tablet 03/24/21 Dexamethasone [Decadron] 6 mg PO DAILY 5 Days #5 tablet 04/10/21 Allergies Allergy/AdvReac Type Severity Reaction Status Date / Time lisinopril AdvReac throat Verified 04/10/21 16:23 swelling Review of Systems ROS Statement: Those systems with pertinent positive or pertinent negative responses have been documented in the HPI. ROS Other: All systems not noted in ROS Statement are negative. Past Medical History Past Medical History: Diabetes Mellitus, GERD/Reflux, Hyperlipidemia, Hypertension, Sleep Apnea/CPAP/BIPAP Additional Past Medical History / Comment(s): PVC's, recent dx of sleep apnea-no cpap used yet, History of Any Multi-Drug Resistant Organisms: None Reported Past Surgical History: Adenoidectomy, Hysterectomy, Tonsillectomy Additional Past Surgical History / Comment(s): d & c x2, D&C with hysteroscopy Past Anesthesia/Blood Transfusion Reactions: No Reported Reaction Past Psychological History: Anxiety, Depression Smoking Status: Former smoker Past Alcohol Use History: Rare Past Drug Use History: Marijuana - Past Family History Mother Family Medical History: No Reported History Father Additional Family Medical History / Comment(s): at age 50 from motor vehicle accident General Exam Limitations: no limitations General appearance: alert, in no apparent distress Head exam: Present: atraumatic, normocephalic Eye exam: Present: normal appearance, PERRL ENT exam: Present: mucous membranes dry Neck exam: Present: normal inspection. Absent: tenderness, meningismus Respiratory exam: Present: decreased breath sounds. Absent: respiratory distress Cardiovascular Exam: Present: regular rate, normal rhythm GI/Abdominal exam: Present: soft. Absent: distended, tenderness, guarding Extremities exam: Present: normal inspection, normal capillary refill. Absent: pedal edema Neurological exam: Present: alert, oriented X3, CN II-XII intact. Absent: motor sensory deficit Psychiatric exam: Present: normal affect, normal mood Skin exam: Present: warm, dry, intact. Absent: cyanosis, diaphoretic Course Vital Signs 04/10/21 16:23 Temperature 102.4 F H Pulse Rate 102 H Respiratory 18 Rate Blood Pressure 142/85 O2 Sat by Pulse 95 Oximetry Medical Decision Making - Medical Decision Making 36-year-old female with coronavirus. Patient is a candidate for monoclonal antibodies. These are transfusing the emergency department. She has normal oxygenation on room air. Laboratory studies obtained, normal CBC, normal CMP, urinalysis showing 2+ ketones. She's given IV steroids, IV fluids, Tylenol and Decadron in the emergency department on reevaluation she is feeling better. She has a pulse oximeter at home and will monitor her breathing closely. She will take vitamin C, zinc, vitamin D as well as a short course of steroids. - Lab Data Result diagrams: 04/10/21 17:14 04/10/21 17:14 Lab Results 04/10/21 04/10/21 04/10/21 Range/Units 17:14 17:14 17:14 WBC 4.9 (3.8-10.6) k/uL RBC 5.66 H (3.80-5.40) m/uL Hgb 13.5 (11.4-16.0) gm/dL Hct 41.7 (34.0-46.0) % MCV 73.8 L (80.0-100.0) fL MCH 23.9 L (25.0-35.0) pg MCHC 32.4 (31.0-37.0) g/dL RDW 16.0 H (11.5-15.5) % Plt Count 209 (150-450) k/uL MPV 7.0 Neutrophils % 85 % Lymphocytes % 10 % Monocytes % 3 % Eosinophils % 0 % Basophils % 0 % Neutrophils # 4.2 (1.3-7.7) k/uL Lymphocytes # 0.5 L (1.0-4.8) k/uL Monocytes # 0.2 (0-1.0) k/uL Eosinophils # 0.0 (0-0.7) k/uL Basophils # 0.0 (0-0.2) k/uL Anisocytosis Slight Microcytosis Slight PT (9.0-12.0) sec INR (<1.2) APTT (22.0-30.0) sec Sodium 135 L (137-145) mmol/L Potassium 3.7 (3.5-5.1) mmol/L Chloride 96 L (98-107) mmol/L Carbon Dioxide 26 (22-30) mmol/L Anion Gap 13 mmol/L BUN 9 (7-17) mg/dL Creatinine 0.64 (0.52-1.04) mg/dL Est GFR (CKD-EPI)AfAm >90 (>60 ml/min/1.73 sqM) Est GFR (CKD-EPI)NonAf >90 (>60 ml/min/1.73 sqM) Glucose 169 H (74-99) mg/dL Plasma Lactic Acid Yao 1.5 (0.7-2.0) mmol/L Calcium 10.0 (8.4-10.2) mg/dL Magnesium 1.5 L (1.6-2.3) mg/dL Total Bilirubin 0.5 (0.2-1.3) mg/dL AST 27 (14-36) U/L ALT 22 (4-34) U/L Alkaline Phosphatase 72 (38-126) U/L Total Protein 7.6 (6.3-8.2) g/dL Albumin 4.5 (3.5-5.0) g/dL Urine Color Urine Appearance (Clear) Urine pH (5.0-8.0) Ur Specific [place] (1.001-1.035) Urine Protein (Negative) Urine Glucose (UA) (Negative) Urine Ketones (Negative) Urine Blood (Negative) Urine Nitrite (Negative) Urine Bilirubin (Negative) Urine Urobilinogen (<2.0) mg/dL Ur Leukocyte Esterase (Negative) Urine RBC (0-5) /hpf Urine WBC (0-5) /hpf Ur Squamous Epith Cells (0-4) /hpf Urine Bacteria (None) /hpf Urine Mucus (None) /hpf 04/10/21 04/10/21 Range/Units 17:14 17:14 WBC (3.8-10.6) k/uL RBC (3.80-5.40) m/uL Hgb (11.4-16.0) gm/dL Hct (34.0-46.0) % MCV (80.0-100.0) fL MCH (25.0-35.0) pg MCHC (31.0-37.0) g/dL RDW (11.5-15.5) % Plt Count (150-450) k/uL MPV Neutrophils % % Lymphocytes % % Monocytes % % Eosinophils % % Basophils % % Neutrophils # (1.3-7.7) k/uL Lymphocytes # (1.0-4.8) k/uL Monocytes # (0-1.0) k/uL Eosinophils # (0-0.7) k/uL Basophils # (0-0.2) k/uL Anisocytosis Microcytosis PT 10.4 (9.0-12.0) sec INR 1.0 (<1.2) APTT 23.2 (22.0-30.0) sec Sodium (137-145) mmol/L Potassium (3.5-5.1) mmol/L Chloride (98-107) mmol/L Carbon Dioxide (22-30) mmol/L Anion Gap mmol/L BUN (7-17) mg/dL Creatinine (0.52-1.04) mg/dL Est GFR (CKD-EPI)AfAm (>60 ml/min/1.73 sqM) Est GFR (CKD-EPI)NonAf (>60 ml/min/1.73 sqM) Glucose (74-99) mg/dL Plasma Lactic Acid Yao (0.7-2.0) mmol/L Calcium (8.4-10.2) mg/dL Magnesium (1.6-2.3) mg/dL Total Bilirubin (0.2-1.3) mg/dL AST (14-36) U/L ALT (4-34) U/L Alkaline Phosphatase (38-126) U/L Total Protein (6.3-8.2) g/dL Albumin (3.5-5.0) g/dL Urine Color Yellow Urine Appearance Cloudy H (Clear) Urine pH 7.0 (5.0-8.0) Ur Specific [place] 1.016 (1.001-1.035) Urine Protein 1+ H (Negative) Urine Glucose (UA) Negative (Negative) Urine Ketones 2+ H (Negative) Urine Blood Negative (Negative) Urine Nitrite Negative (Negative) Urine Bilirubin Negative (Negative) Urine Urobilinogen <2.0 (<2.0) mg/dL Ur Leukocyte Esterase Negative (Negative) Urine RBC <1 (0-5) /hpf Urine WBC 2 (0-5) /hpf Ur Squamous Epith Cells 6 H (0-4) /hpf Urine Bacteria Rare H (None) /hpf Urine Mucus Rare H (None) /hpf Disposition Clinical Impression: COVID-19 Disposition: HOME SELF-CARE Condition: Fair Instructions (If sedation given, give patient instructions): Coronavirus Disea se 2019 (COVID-19) Additional Instructions: Please return with worsening or changing symptoms. Please take vitamin C, zinc, vitamin D. Please follow up with her primary care physician. Please monitor your oxygen level at home. Please quarantined for an additional 10 days. Prescriptions: Dexamethasone [Decadron] 6 mg PO DAILY 5 Days #5 tablet Is patient prescribed a controlled substance at d/c from ED?: No Referrals: Sam Alexander MD [Primary Care Provider] - 1-2 days Time of Disposition: 18:52
[2021-04-10] MEDS ORDERED: CASIRIVIMAB (REGN10933) (EUA) 600 MG, IMDEVIMAB (REGN10987) (EUA) 600 MG in SODIUM CHLO... IVPB ONE (17:30)
[2021-04-10 18:00] LABS: Anisocytosis Slight; Basophils % (A) 0 %; Eosinophils % (A) 0 %; HCT 41.7 % (34.0-46.0); HGB 13.5 gm/dL (11.4-16.0); Lymphocytes # (A) 0.5 k/uL (1.0-4.8); Lymphocytes % (A) 10 %; MCH 23.9 pg (25.0-35.0); MCHC 32.4 g/dL (31.0-37.0); MCV 73.8 fL (80.0-100.0); Microcytosis Slight; Monocytes # (A) 0.2 k/uL (0-1.0); Monocytes % (A) 3 %; Neutrophils # (A) 4.2 k/uL (1.3-7.7); Neutrophils % (A) 85 %; Platelet Count 209 k/uL (150-450); RBC 5.66 m/uL (3.80-5.40); WBC 4.9 k/uL (3.8-10.6)
[2021-04-10] MEDS ORDERED: SODIUM CHLORIDE 0.9% 50 ML IVPB ONE (18:00)
[2021-04-10 18:05] LABS: Appearance,Urine Cloudy (Clear); Bacteria,Urine Rare /hpf; Bilirubin,Urine Negative (Negative); Blood,Urine Negative (Negative); Color,Urine Yellow; Glucose,Urine (UA) Negative (Negative); Ketones,Urine 2+ (Negative); Leukocyte Esterase,Urine Negative (Negative); Mucus,Urine Rare /hpf; Nitrite,Urine Negative (Negative); Protein,Urine 1+ (Negative); RBC,Urine <1 /hpf (0-5); Specific Gravity,Urine 1.016 (1.001-1.035); Squamous Epithelial Cell,Urine 6 /hpf (0-4); Urobilinogen,Urine <2.0 mg/dL (<2.0); WBC,Urine 2 /hpf (0-5)
[2021-04-10 18:09] LABS: ALT 22 U/L (4-34); AST 27 U/L (14-36); African American GFR (CKD) >90 (>60 ml/min/1.73 sqM); Albumin 4.5 g/dL (3.5-5.0); Alkaline Phosphatase 72 U/L (38-126); Anion Gap 13 mmol/L; Blood Urea Nitrogen 9 mg/dL (7-17); Carbon Dioxide 26 mmol/L (22-30); Chloride 96 mmol/L (98-107); Glucose 169 mg/dL (74-99); Magnesium 1.5 mg/dL (1.6-2.3); Non-African American GFR(CKD) >90 (>60 ml/min/1.73 sqM); Potassium 3.7 mmol/L (3.5-5.1); Sodium 135 mmol/L (137-145); Total Bilirubin 0.5 mg/dL (0.2-1.3); Total Protein 7.6 g/dL (6.3-8.2)
[2021-04-10 18:15] LABS: Partial Thromboplastin Time 23.2 sec (22.0-30.0); Prothrombin Time 10.4 sec (9.0-12.0)
--- NOTE | 2021-04-10 18:44 | XR ---
EXAMINATION TYPE: XR chest 1V portable DATE OF EXAM: 04/10/2021 COMPARISON: 03/24/2021 HISTORY: Cough. Chest pain TECHNIQUE: FINDINGS: Heart and mediastinum are normal. Lungs are clear. Diaphragm is normal. Bony thorax is inta ct. There is no heart failure. IMPRESSION: Normal chest. No change.
[2021-04-10 20:05] VITALS: BP 142/89; PULSE 103; RESP 18; TEMP 100.8
== END 2021-04-10 20:06 | disposition home or self-care (01) ==
LOC: EC 15:59
DX: U07.1 COVID-19 (principal); E11.9 Type 2 diabetes mellitus without complications; I10 Essential (primary) hypertension; E78.5 Hyperlipidemia, unspecified; K21.9 Gastro-esophageal reflux disease without esophagitis; F32.9 Major depressive disorder, single episode, unspecified; F41.9 Anxiety disorder, unspecified; Z79.1 Long term (current) use of non-steroidal anti-inflammatories (NSAID); Z79.52 Long term (current) use of systemic steroids; Z79.84 Long term (current) use of oral hypoglycemic drugs; Z79.899 Other long term (current) drug therapy; Z79.51 Long term (current) use of inhaled steroids; Z87.891 Personal history of nicotine dependence; Z88.8 Allergy status to other drugs, medicaments and biological substances
CPT/HCPCS: 36415; 80053; 83605; 83735; 85025; 85610; 85730; 81001; 71045; 99284; 96365; 96375 ×2; 96361; J1100; J2405; Q0243

== ENCOUNTER 2021-04-12 08:54 | Emergency (ER) | payer BC ==
[2021-04-12 09:00] VITALS: RESP 18
[2021-04-12] MEDS ORDERED: SODIUM CHLORIDE 0.9% 1,000 ML IV STA (09:07)
[2021-04-12 09:39] LABS: Anisocytosis Slight; Basophils % (A) 0 %; Eosinophils % (A) 0 %; HCT 38.2 % (34.0-46.0); HGB 12.3 gm/dL (11.4-16.0); Lymphocytes # (A) 1.2 k/uL (1.0-4.8); Lymphocytes % (A) 30 %; MCH 23.9 pg (25.0-35.0); MCHC 32.1 g/dL (31.0-37.0); MCV 74.5 fL (80.0-100.0); Mean Platelet Volume 7.6; Microcytosis Slight; Monocytes # (A) 0.2 k/uL (0-1.0); Monocytes % (A) 5 %; Neutrophils # (A) 2.5 k/uL (1.3-7.7); Neutrophils % (A) 64 %; Platelet Count 170 k/uL (150-450); RBC 5.13 m/uL (3.80-5.40)
[2021-04-12 10:00] LABS: Potassium 3.2 mmol/L (3.5-5.1)
[2021-04-12 10:01] LABS: ALT 17 U/L (4-34); AST 25 U/L (14-36); African American GFR (CKD) >90 (>60 ml/min/1.73 sqM); Albumin 3.5 g/dL (3.5-5.0); Alkaline Phosphatase 57 U/L (38-126); Anion Gap 11 mmol/L; Blood Urea Nitrogen 12 mg/dL (7-17); Calcium 8.9 mg/dL (8.4-10.2); Carbon Dioxide 26 mmol/L (22-30); Chloride 101 mmol/L (98-107); Glucose 162 mg/dL (74-99); Non-African American GFR(CKD) >90 (>60 ml/min/1.73 sqM); Sodium 138 mmol/L (137-145); Total Bilirubin 0.4 mg/dL (0.2-1.3); Total Protein 6.5 g/dL (6.3-8.2)
--- NOTE | 2021-04-12 10:04 | XR ---
EXAMINATION TYPE: XR chest 2V DATE OF EXAM: 04/12/2021 COMPARISON: Chest x-ray 04/10/2021 HISTORY: Difficulty breathing TECHNIQUE: Frontal and lateral views of the chest are obtained. FINDINGS: Patchy predominantly peripheral airspace disease noted within the lungs. Lung volumes are low. Is no evident pneumothorax or pleural effusion. Cardiomediastinal silhouette is within normal li mits. There are overlying leads. IMPRESSION: Correlate for pneumonia, consider Covid 19 infection
[2021-04-12] MEDS ORDERED: ACETAMINOPHEN TAB 325 MG TAB PO STA (10:11)
[2021-04-12] MEDS ORDERED: DEXAMETHASONE SOD PHOSPHATE 10 MG/ML 1 ML VIAL IV STA (10:30)
[2021-04-12 10:38] LABS: Appearance,Urine Cloudy (Clear); Bilirubin,Urine Negative (Negative); Blood,Urine Negative (Negative); Color,Urine Yellow; Glucose,Urine (UA) Negative (Negative); Ketones,Urine 1+ (Negative); Leukocyte Esterase,Urine Negative (Negative); Nitrite,Urine Negative (Negative); PH, Urine 6.5 (5.0-8.0); Protein,Urine 2+ (Negative); Specific Gravity,Urine 1.041 (1.001-1.035)
[2021-04-12 11:05] VITALS: BP 127/74; PULSE 79; TEMP 98.5
--- NOTE | 2021-04-12 11:14 | ED ---
SOB HPI - General Chief Complaint: Shortness of Breath Stated Complaint: covid+, low oxygen-revisit Time Seen by Provider: 04/12/21 09:01 Source: patient, RN notes reviewed Mode of arrival: ambulatory Limitations: no limitations - History of Present Illness Initial Comments: Patient is a 36 she'll female presents to the emergency department complaining of shortness of breath. She notes she was seen here 2 days ago was diagnosed with Covid and sent home with prednisone. She was told to monitor her O2 sats in the come back if anything alarming change. Patient is otherwise well- appearing in no apparent respiratory distress. She is not using any accessory muscles. Patient notes that her at home O2 monitor showed she was in the upper 80s 88-89 when she woke up this morning. She denied any other issues or complaints at this time. She was otherwise well-appearing. She denied chest pain headache nausea vomiting diarrhea constipation fever fatigue chills. - Related Data Home Medications Medication Instructions Recorded Confirmed Atorvastatin [Lipitor] 10 mg PO HS 04/01/20 04/12/21 amLODIPine [Norvasc] 10 mg PO DAILY 04/01/20 04/12/21 metFORMIN HCL [Glucophage] 1,000 mg PO BID 04/01/20 04/12/21 Venlafaxine HCl [Effexor XR] 150 mg PO DAILY 07/14/20 04/12/21 Acetaminophen Tab [Tylenol Tab] 1,000 mg PO Q6HR PRN 04/12/21 04/12/21 Furosemide [Lasix] 20 mg PO DAILY 04/12/21 04/12/21 Metoprolol Succinate (ER) [Toprol 25 mg PO HS 04/12/21 04/12/21 Xl] Pantoprazole Sodium [Protonix] 20 mg PO BID 04/12/21 04/12/21 Triamterene-Hctz 37.5-25Mg 1 cap PO BID 04/12/21 04/12/21 [Dyazide 37.5-25 Capsule] clonazePAM [KlonoPIN] 0.5 mg PO HS PRN 04/12/21 04/12/21 Previous Rx's Medication Instructions Recorded Albuterol Inhaler [Ventolin Hfa 2 puff INHALATION RT-QID PRN #8 gm 03/24/21 Inhaler] Allergies Allergy/AdvReac Type Severity Reaction Status Date / Time lisinopril AdvReac throat Verified 04/12/21 09:53 swelling Review of Systems ROS Statement: Those systems with pertinent positive or pertinent negative responses have been documented in the HPI. ROS Other: All systems not noted in ROS Statement are negative. Past Medical History Past Medical History: Diabetes Mellitus, GERD/Reflux, Hyperlipidemia, Hypertension, Sleep Apnea/CPAP/BIPAP Additional Past Medical History / Comment(s): PVC's, recent dx of sleep apnea-no cpap used yet, History of Any Multi-Drug Resistant Organisms: None Reported Past Surgical History: Adenoidectomy, Hysterectomy, Tonsillectomy Additional Past Surgical History / Comment(s): d & c x2, D&C with hysteroscopy Past Anesthesia/Blood Transfusion Reactions: No Reported Reaction Past Psychological History: Anxiety, Depression Smoking Status: Former smoker Past Alcohol Use History: Rare Past Drug Use History: Marijuana - Past Family History Mother Family Medical History: No Reported History Father Additional Family Medical History / Comment(s): at age 50 from motor vehicle accident General Exam Limitations: no limitations General appearance: alert, in no apparent distress, obese Head exam: Present: atraumatic, normocephalic, normal inspection Eye exam: Present: normal appearance, PERRL, EOMI. Absent: scleral icterus, conjunctival injection, periorbital swelling ENT exam: Present: normal exam, mucous membranes moist Neck exam: Present: normal inspection Respiratory exam: Present: normal lung sounds bilaterally. Absent: respiratory distress, wheezes, rales, rhonchi, stridor Cardiovascular Exam: Present: regular rate, normal rhythm, normal heart sounds. Absent: systolic murmur, diastolic murmur, rubs, gallop, clicks Extremities exam: Present: normal inspection, full ROM, normal capillary refill. Absent: tenderness, pedal edema, joint swelling, calf tenderness Neurological exam: Present: alert, oriented X3 Psychiatric exam: Present: normal affect, normal mood Skin exam: Present: warm, dry, intact, normal color. Absent: rash Course Vital Signs 04/12/21 04/12/21 08:55 11:02 Temperature 100.0 F H 98.5 F Pulse Rate 98 79 Respiratory 18 18 Rate Blood Pressure 146/94 127/74 O2 Sat by Pulse 93 L 93 L Oximetry Medical Decision Making - Medical Decision Making 36 she'll female Covid-positive did received monoclonal antibody returning for continuing symptoms. Chest x-ray, labs, 10 mg Decadron ordered. Labs unremarkable. Chest x-ray shows bilateral peripheral airspace disease. Patient is on at home steroids currently. Patient oxygen saturation emergency Department ranged from 93-96% on room air. Patient is agreeable with discharge home with close follow-up to primary care. Case discussed with Dr. Fritz, patient can discharge home with follow-up primary care in 1-2 days. - Lab Data Result diagrams: 04/12/21 09:30 04/12/21 09:30 Lab Results 04/12/21 04/12/21 04/12/21 Range/Units 09:30 09:30 10:23 WBC 4.0 (3.8-10.6) k/uL RBC 5.13 (3.80-5.40) m/uL Hgb 12.3 (11.4-16.0) gm/dL Hct 38.2 (34.0-46.0) % MCV 74.5 L (80.0-100.0) fL MCH 23.9 L (25.0-35.0) pg MCHC 32.1 (31.0-37.0) g/dL RDW 16.0 H (11.5-15.5) % Plt Count 170 (150-450) k/uL MPV 7.6 Neutrophils % 64 % Lymphocytes % 30 % Monocytes % 5 % Eosinophils % 0 % Basophils % 0 % Neutrophils # 2.5 (1.3-7.7) k/uL Lymphocytes # 1.2 (1.0-4.8) k/uL Monocytes # 0.2 (0-1.0) k/uL Eosinophils # 0.0 (0-0.7) k/uL Basophils # 0.0 (0-0.2) k/uL Anisocytosis Slight Microcytosis Slight Sodium 138 (137-145) mmol/L Potassium 3.2 L (3.5-5.1) mmol/L Chloride 101 (98-107) mmol/L Carbon Dioxide 26 (22-30) mmol/L Anion Gap 11 mmol/L BUN 12 (7-17) mg/dL Creatinine 0.53 (0.52-1.04) mg/dL Est GFR (CKD-EPI)AfAm >90 (>60 ml/min/1.73 sqM) Est GFR (CKD-EPI)NonAf >90 (>60 ml/min/1.73 sqM) Glucose 162 H (74-99) mg/dL Calcium 8.9 (8.4-10.2) mg/dL Total Bilirubin 0.4 (0.2-1.3) mg/dL AST 25 (14-36) U/L ALT 17 (4-34) U/L Alkaline Phosphatase 57 (38-126) U/L Total Protein 6.5 (6.3-8.2) g/dL Albumin 3.5 (3.5-5.0) g/dL Urine Color Yellow Urine Appearance Cloudy H (Clear) Urine pH 6.5 (5.0-8.0) Ur Specific [place] 1.041 H (1.001-1.035) Urine Protein 2+ H (Negative) Urine Glucose (UA) Negative (Negative) Urine Ketones 1+ H (Negative) Urine Blood Negative (Negative) Urine Nitrite Negative (Negative) Urine Bilirubin Negative (Negative) Urine Urobilinogen 3.0 (<2.0) mg/dL Ur Leukocyte Esterase Negative (Negative) - EKG Data -: EKG Interpreted by Ia EKG shows normal: sinus rhythm Rate: normal EKG Comments: Ventricular rate 85 bpm, NH interval 144 ms, QRS duration 90 ms, QTC 435 ms, PRT axes 18/-13/-1, normal sinus rhythm, normal ECG. - Radiology Data Radiology results: report reviewed, image reviewed Chest: Patchy predominant peripheral airspace disease noted within the lungs lung bilateral low. He is no evident pneumothorax pleural effusion. Cardiac medicine also is within normal as. There are overlying leads. Disposition Clinical Impression: COVID-19 Disposition: HOME SELF-CARE Condition: Stable Instructions (If sedation given, give patient instructions): Coronavirus Disease 2019 (COVID-19) Additional Instructions: Please return to the Emergency Department if symptoms worsen or any other concerns. Follow-up with primary care 1-2 days. Continue take steroids as prescribed. Get plenty rest. Is patient prescribed a controlled substance at d/c from ED?: No Referrals: Sam Alexander MD [Primary Care Provider] - 1-2 days Time of Disposition: 11:13
== END 2021-04-12 11:27 | disposition home or self-care (01) ==
LOC: EC 08:54
DX: U07.1 COVID-19 (principal); E11.9 Type 2 diabetes mellitus without complications; E78.5 Hyperlipidemia, unspecified; I10 Essential (primary) hypertension; K21.9 Gastro-esophageal reflux disease without esophagitis; F41.9 Anxiety disorder, unspecified; F32.9 Major depressive disorder, single episode, unspecified; F12.90 Cannabis use, unspecified, uncomplicated; Z79.84 Long term (current) use of oral hypoglycemic drugs; Z90.710 Acquired absence of both cervix and uterus; Z90.89 Acquired absence of other organs; Z87.891 Personal history of nicotine dependence
CPT/HCPCS: 99285; 96374; 96361; 36415; 93005; 80053; 85025; 81001; 71046; J1100

== ENCOUNTER → 2023-07-09 | Outpatient (CLI) | payer BC ==
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
== END | disposition home or self-care (01) ==
LOC: RADXRMAIN 12:57
PROVIDERS: ATTEND Physician Assistant
DX: M19.011 Primary osteoarthritis, right shoulder (principal)

== ENCOUNTER → 2023-09-24 | Outpatient (CLI) | payer OTHER ==
--- NOTE | 2023-09-24 08:52 | MR ---
EXAMINATION TYPE: MR shoulder RT wo con DATE OF EXAM: 09/24/2023 7:40 AM COMPARISON: NONE HISTORY: Right shoulder pain. TECHNIQUE: Multiplanar multispin echo imaging of the right shoulder was performed. FINDINGS: Rotator cuff : There is no complete or bursal/articular sided partial rotator cuff tear. The subscapu toby constituent of the rotator cuff is intact. There is thickening and heterogeneity of the suprasp inatus tendon compatible with chronic tendinopathy. Bursa: No bursal effusion or thickening is seen. Musculature: There is no muscular tear, contusion, or atrophy. Acromioclavicular joint : Small subacromial spur does result in mild impingement. [id number] AC joint arthropathy. There is no anterior or lateral acromial downsloping. Osseous structures : There are no fractures or regions of abnormal bone marrow signal intensity. Long biceps tendon : The biceps tendon is normally situated within the bicipital groove. No complete or partial biceps tendon tear is present. Glenohumeral Joint fluid : There is no glenohumeral joint effusion. Cartilage and Bone : No focal hyaline cartilage defects are noted. No Hill-Sachs, reverse Hill-Sachs, or bony Bankart lesions are seen. Labrum : There are no SLAP or soft tissue Bankart lesions. No paralabral cysts are seen. OTHER FINDINGS : none IMPRESSION: 1. Chronic tendinopathy secondary to subacromial impingement. No evidence of partial or complete.
--- NOTE | 2023-09-24 08:54 | MR ---
EXAMINATION TYPE: MR cervical spine wo con DATE OF EXAM: 09/24/2023 7:41 AM COMPARISON: NONE HISTORY: Radiculopathy Multiplanar MultiSpin echo imaging of the cervical spine was performed. Comparison: none C2-C3: No evidence for degenerative disc disease. No disc bulge/herniation or protrusion. No Canal stenosis. Foramina are patent bilaterally. C3-C4: No evidence for degenerative disc disease. No disc bulge/herniation or protrusion. No Canal stenosis. Foramina are patent bilaterally. C4-C5: No evidence for degenerative disc disease. No disc bulge/herniation or protrusion. No Canal stenosis. Foramina are patent bilaterally. C5-C6: No evidence for degenerative disc disease. No disc bulge/herniation or protrusion. No Canal stenosis. Foramina are patent bilaterally. C6-C7: No evidence for degenerative disc disease. No disc bulge/herniation or protrusion. No Canal stenosis. Foramina are patent bilaterally. C7-T1: No evidence for degenerative disc disease. No disc bulge/herniation or protrusion. No Canal stenosis. Foramina are patent bilaterally. Cervical segments are intact. There is normal alignment. Cervical spinal cord is of normal signal. Craniovertebral junction relationships are within normal limits. IMPRESSION: 1. No distinct abnormality appreciated.
== END | disposition home or self-care (01) ==
LOC: RADMRIMAIN 06:02
PROVIDERS: ATTEND Orthopaedic Surgery
DX: M25.811 Other specified joint disorders, right shoulder (principal); M54.12 Radiculopathy, cervical region; M62.81 Muscle weakness (generalized); M67.813 Other specified disorders of tendon, right shoulder
CPT/HCPCS: 72141

== ENCOUNTER → 2024-04-30 | Outpatient (CLI) | payer BC ==
--- NOTE | 2024-05-05 09:17 | MM ---
Reason for Exam: Screening (asymptomatic). Last mammogram was performed 7 year(s) and 8 month(s) ago. Patient History: Menarche at age 9. First Full-Term at age 20. Left ovary removed at age 36. Right ovary removed at age 36. Hysterectomy at age 36. Postmenopausal. Patient has history of breast feeding. Maternal aunt (gr) had breast cancer. Risk Values: Sophia 5 year model risk: 0.5%. NCI Lifetime model risk: 9.9%. Prior Study Comparison: 09/05/2016 Bilateral Diagnostic Mammogram, [facility]. Tissue Density: The breasts are almost entirely fatty. Findings: Analyzed By CAD. Right breast: There is no suspicious group of microcalcifications or new suspicious mass. Left breast: There is no suspicious group of microcalcifications or new suspicious mass. Overall Assessment: Negative, BI-RAD 1 Management: Screening Mammogram of both breasts in [address] [facility] will attempt to contact patient to return for supplemental views and ultrasound if indicated. Patient should continue monthly self-breast exams. A clinical breast exam by your physician is recommended on an annual basis. This exam should not preclude additional follow-up of suspicious palpable abnormalities. Note on Sophia scores and lifetime risk: 1. A Sophia score greater than 3% is considered moderate risk. If this is the case, consider specialist referral to assess eligibility for a risk reducing agent. 2. If overall lifetime risk for the development of breast cancer is 20% or higher, the patient may qualify for future screening with alternating mammogram and breast MRI. [facility], , 05/05/2024 9:15 AM. Electronically signed and approved by: Cortes Emery DO
== END | disposition home or self-care (01) ==
LOC: RADMAMWWP 08:57
PROVIDERS: ATTEND Internal Medicine Geriatric Medicine
DX: Z12.31 Encounter for screening mammogram for malignant neoplasm of breast (principal); Z78.0 Asymptomatic menopausal state; Z80.3 Family history of malignant neoplasm of breast; Z90.722 Acquired absence of ovaries, bilateral; R92.313 Mammographic fatty tissue density, bilateral breasts
CPT/HCPCS: 77063; 77067